=== PATIENT | male | born 1990 | race Caucasian/White ===

== ENCOUNTER 2021-08-06 10:30 | Outpatient (REF) | payer OTHER, SELFPAY ==
[2021-08-06 11:31] LABS: Appearance Urine HAZY; Color Urine YELLOW; Glucose Urine UA NEG (NEG); Leukocyte Esterase Urine NEG (NEG); Nitrite Urine NEG (NEG); UACC Culture Trigger NO; Urine Blood TRACE (NEG); Urine Ketones NEG (NEG); Urine Protein NEG (NEG-TRACE)
[2021-08-06 11:43] LABS: Alanine Aminotransferase 18 U/L (0-40); Albumin Level 4.7 g/dL (3.5-5.0); Alkaline Phosphatase 55 U/L (39-117); Anion Gap 13 (12-20); Aspartate Amino Transferase 21 U/L (5-37); Bilirubin Total 0.7 mg/dL (0.0-1.0); Blood Urea Nitrogen 11 mg/dL (9-16); Calcium 9.3 mg/dL (8.4-10.2); Carbon Dioxide 24 mmol/L (22-29); Chloride 105 mmol/L (96-108); Cholesterol 209 mg/dL; Estimated Glomerular Filt Rate > 60; Glucose Fasting 77 mg/dL (60-99); HDL Cholesterol 52 mg/dL; LDL Cholesterol Calculated 142 mg/dl; Potassium 4.2 mmol/L (3.3-5.1); Sodium 138 mmol/L (135-145); Total Protein 7.6 g/dL (6.5-8.0); Triglycerides 76 mg/dL
[2021-08-06 12:04] LABS: WBC Urine 0 /HPF (0-4)
[2021-08-06 12:07] LABS: TSH reflex Free T4 0.98 uIU/mL (0.32-4.0)
== END 2021-08-06 10:31 | disposition home or self-care (01) ==
LOC: HO.HMGCLDS 10:30
PROVIDERS: PCP Nurse Practitioner Family; Visit Provider Nurse Practitioner Family
DX: B36.0 Pityriasis versicolor (principal); R31.29 Other microscopic hematuria; Z80.0 Family history of malignant neoplasm of digestive organs
CPT/HCPCS: 36415; 80053; 80061; 81001; 84443

== ENCOUNTER → 2021-11-02 14:06 | Outpatient (BNVA) | payer OTHER, SELFPAY | PROVIDERS: PCP Nurse Practitioner Family; Referring Provider Nurse Practitioner Family; Visit Provider Nurse Practitioner | DX: Z01.818 Encounter for other preprocedural examination (principal); Z80.0 Family history of malignant neoplasm of digestive organs | CPT/HCPCS: 99202 ==

== ENCOUNTER 2021-11-28 11:16 | Outpatient (REF) | payer OTHER, SELFPAY ==
[2021-11-28 12:41] LABS: COVID-19 Test Positive (Negative); IDNOW Serial# 16C4AD1C
== END 2021-11-28 11:17 | disposition home or self-care (01) ==
LOC: HO.LAB 11:16
PROVIDERS: Visit Provider Internal Medicine
DX: Z20.822 Contact with and (suspected) exposure to COVID-19 (principal)
CPT/HCPCS: 36415; 87635; C9803

== ENCOUNTER 2022-03-18 07:52 | Day surgery (SDC) | payer OTHER, SELFPAY ==
[2022-03-18 07:15] VITALS: BMI 26.9
[2022-03-18 08:01] VITALS: BP 150/87; PULSE 74; RESP 18; TEMP 36.2
--- NOTE | 2022-03-18 08:14 | HO.ANESPROP2 ---
PMFSH Active Problems Active Problems: All Active Problems (Updated 03/17/22 @ 08:17 by Trish Mariscal RN) Family hx of colon cancer (Acute) Tinea versicolor (Acute) Microscopic hematuria (Acute) Anxiety (Acute) Past Medical History Medical History Anxiety Microscopic hematuria Panic attacks Tinea versicolor Functional capacity: independent ambulation Family History Family history of problems with anesthesia: No Surgical History Surgical History (Updated 03/17/22 @ 08:17 by Trish Mariscal RN) History of wisdom tooth extraction History of Problems with Anesthesia: No Social History Social History Housing: House Patient Tobacco Use Status: Never used Tobacco e-Cigarette/Vaping Use: Former Use Second Hand Smoke Exposure: No Are you DNR?: No Advance Directives: No Advance Directives Information Provided: Yes service: Yes Current occupational status: employed Current occupation: [employer] Current occupational exposures/hazards: No Meds Allergies Allergy/AdvReac Type Severity Reaction Status Date / Time No Known Allergies Allergy Verified 02/01/22 11:20 Exam Exam Date and Time: March 18, 2022 0814 Height,Weight and Vital Signs: Height 6 ft 2 in Weight 95.254 kg Last Vital Signs Temp 97.1 F 03/18/22 08:01 Pulse 74 03/18/22 08:01 Resp 18 03/18/22 08:01 BP 150/87 H 03/18/22 08:01 Airway Mallampati Class: II TM Dist: >3cm Neck ROM: Full Heart: RRR Lungs: CTA Assessment and Plan Final Anesthetic Review Family History of Problems with Anesthesia: No History of Problems with Anesthesia: No ASA Class: II Final Preanesthetic Review: No Changes in Pt Med Stat, Meds/Allgs Chart Reviewed, Consent Obtained/Reviewed and Anes Risks/Benef Reviewed Patient Risk: Low Procedure Risk: Low Anesthetic Plan Anesthetic Plan: MAC: Disposition: Standard PACU
--- NOTE | 2022-03-18 08:52 | MHC.SHP ---
Pre-Procedural Eval Section A Date of Service: 03/18/22 Section B Chief Complaint: Fhx malignant neoplasm of digestive Details of Present Illness: grandfather had CRC in his 40's maternal, his father had polyps in early 40's. Relevant Family History (Specify if Yes): Yes Relevant Social History: None Present Medications: see Short Stay Collaborative assessment Medical History: Significant History (Anxiety Microscopic hematuria Panic attacks Tinea versicolor) History of Previous Operations: Relevant previous surgery/procedure and date(s) (wisdom tooth removal) Allergies: Allergies Allergy/AdvReac Type Severity Reaction Status Date / Time No Known Allergies Allergy Verified 02/01/22 11:20 Review of Systems Sugical H&P ROS: Negative: Constitution, Cardiovascular, Respiratory, Neurological, Psychiatric, Hem-Onc, Allergic/Immunologic, Gastrointestinal, Genitourinary, Musculoskeletal, Integumentary, Endocrine and Eyes/Ears/Nose/Throat Exam Surgical H&P Exam: Normal: HEENT, Normal: Heart, Normal: Lungs, Normal: Extremities, Normal: Abdomen, Normal: Skin and Normal: Neurological Plan Diagnosis/Plan: Unchanged I have reviewed the history and physical and performed a pertinent physical examination on my patient. No changes have occurred unless specified.
--- NOTE | 2022-03-18 08:54 | PM.OP ---
Brief Operative Note Date of Service: 03/18/22 Pre-op diagnosis: FH of CRC and polyps Post-op diagnosis: same Procedure: see op note Surgeon: Elia Rust MD Anesthesia: MAC Was an Professor Of Psychology used for this Procedure?: No Estimated blood loss (mL): 0 Condition: stable Disposition: PACU
--- NOTE | 2022-03-18 08:54 | W.PM.OPN ---
Operative Note Operative Note Date of Service: 03/18/22 Narrative: Operative Information Procedure Description: Colonoscopy Indication: FH of CRC and polyps, high risk screening Anesthesia: MAC COLONOSCOPY Instrument: Olympus variable stiffness pediatric scope 190L Colonoscopy Monitoring: Vital signs and clinical assessment, continuous EKG monitoring, Pulse oximetry, Carbon Dioxide monitoring and blood pressure monitoring were done throughout the procedure. Colon withdrawal time was 8 minutes. Procedure: The patient was placed in the left lateral decubitis position and pre-procedure medications were administered. After a digital rectal examination of the ano-rectum, the video colonoscope was inserted into the rectum and advanced through the colon to the cecum/TI. The colonoscope was slowly withdrawn in a retrograde panoramic fashion and the colon mucosa was carefully examined including a retroflexed view of the rectum. Findings and interventions are described below. Procedure Difficulty: easy Findings: Terminal Ileum-normal right sided retroflexion was normal Cecum:normal Ascending Colon: normal Transverse Colon -normal Descending Colon:normal Sigmoid Colon: normal Rectum: Retroflexion with small internal hemorrhoids, grade I Anorectum - normal Colon preparation: [place] Bowel Preparation Scale Right colon; 2 Transverse colon: 2 Left colon; 2 (0 = Unprepared colon segment with mucosa not seen due to solid stool that cannot be cleared. 1 = Portion of mucosa of the colon segment seen, but other areas of the colon segment not well seen due to staining, residual stool and/or opaque liquid. 2 = Minor amount of residual staining, small fragments of stool and/or opaque liquid, but mucosa of colon segment seen well. 3 = Entire mucosa of colon segment seen well with no residual staining, small fragments of stool or opaque liquid) Impression and Post Procedure Diagnosis: internal hemorrhoids Plan: High fiber diet leaflet Avoid straining at stool, epsom salts and sitz bath, anusol supps or cream Repeat Colonoscopy in 5 years due to FH or earlier if clinically indicated Above findings were reviewed with the patient and relevant handouts were provided if indicated.
[2022-03-18 09:25] VITALS: BP 95/50; PULSE 67; RESP 16; TEMP 36.1; O2SAT 98
[2022-03-18 09:40] VITALS: BP 106/60; PULSE 56; RESP 16; TEMP 36.1; O2SAT 98
--- NOTE | 2022-03-18 13:12 | HO.POSTANES ---
Post Anesthesia Evaluation Post Anesthesia Evaluation Vital Signs: Vital Signs Temp Pulse Resp BP Pulse Ox 03/18/22 09:40 97.0 F 56 16 106/60 98 03/18/22 09:25 97.0 F 67 16 95/50 L 98 03/18/22 08:01 97.1 F 74 18 150/87 H Anesthesia: Monitored Mental Status: Awake Pain Control: Satisfactory Nausea/Vomiting: None Hydration: Adequate Anesthesia-Related Issues: No Anes. Related Issues
== END 2022-03-18 10:21 | disposition home or self-care (01) ==
PROVIDERS: PCP Nurse Practitioner Family; Visit Provider Internal Medicine Gastroenterology
PROC: 0DJD8ZZ Inspection of Lower Intestinal Tract, Via Natural or Artificial Opening Endoscopic (ICD-10-PCS; CPT 45378; principal; 2022-03-18 09:20)
DX: Z12.11 Encounter for screening for malignant neoplasm of colon (principal); Z80.0 Family history of malignant neoplasm of digestive organs; Z83.71 Family history of colonic polyps; K64.0 First degree hemorrhoids; R31.29 Other microscopic hematuria; B36.0 Pityriasis versicolor
CPT/HCPCS: 45378

== ENCOUNTER 2022-08-05 11:29 | Outpatient (REF) | payer OTHER, SELFPAY ==
--- NOTE | ~2022-08-05 | XR_ITS ---
EXAMINATION: XR HIP, LEFT CLINICAL INFORMATION: Pain COMPARISON: None TECHNIQUE: Two views of the left hip. FINDINGS: Bones and soft tissues are normal. No fracture. Alignment is anatomic. Hip joint space is maintained. XR/XR hip LT min 2V IMPRESSION: Normal left hip.
== END 2022-08-05 11:30 | disposition home or self-care (01) ==
LOC: HO.HMGCX 11:29
PROVIDERS: PCP Nurse Practitioner Family; Visit Provider Nurse Practitioner Family
DX: M25.552 Pain in left hip (principal)
CPT/HCPCS: 73502

== ENCOUNTER 2022-09-23 13:00 | Outpatient (RCR) | payer OTHER, SELFPAY ==
--- NOTE | 2022-08-09 15:57 | MHC.PT.EP ---
[facility] [place] Office [place] Office [place] Office [address] Glendy Steen [address] [phone] F: [phone] F: [phone] F: [phone] F: [phone] Physical Therapy Plan of Care Date of Evaluation: Date of Surgery: n/a Diagnosis: pain in L hip Assessment: Patient is a 32 year old male presenting to PT with complaints of pain in his L hip. Pt reports onset of pain began Spring 2021 due to lunging to his L. He presents today with impairments in pain, hip strength, ROM. 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 Pt expresses senior care goal of reducing pain, and is motivated to work towards this in PT. Clinical presentation today is most consistent with signs and sx associated with hip pain with possible labral involvement and pt will benefit from skilled PT to address the following problems and impairments noted upon evaluation: pain, hip strength, ROM. These problems limit the patient with the following functional activities: work, sleep, ADLs, caring for 3 and 1 year old, ambulation, car transfer. The prescribed treatment plan of care is medically necessary. Co-morbidities of none were identified and taken into considerations of plan of care. Pt was educated on HEP, role of PT, prognosis, POC. Frequency and Duration: The patient will be seen 2 x week x 4 weeks Short Term Goals: Pt will demonstrate improved hip MMT strength by 1/3 grade in 2 weeks for improved lumbopelvic stability. Pt will demonstrate minimal tenderness to TFL in 2 weeks. Pt will demonstrate L SLS stability x 30 sec for improved SL stability in 2 weeks. Section Gang Worker Goals: Pt will demosntrate improved LEFI score by 9 points in 4 weeks for improved functional mobility. Pt will demonstrate ability to sleep on L side with min to no pain in 4 weeks for improved QOL. Pt will demonstrate ability to get in and out of car with min to no pain in 4 weeks for return to PLOF. Treatment Plan: Modalities to reduce pain, spasms and effusion. Manual therapy to restore motion and function. Therapeutic exercise to improve strength and flexibility. Neuromuscular re-education for posture and balance. Therapeutic activities to return to functional activities of daily living. Electronically signed by: Dorothy Chavez, PT, DPT, ATC Please sign and return to therapist. Thank you for your referral.
--- NOTE | 2022-11-03 15:45 | MHC.PT.DC ---
[facility] [place] Office [place] Office [place] Office [address] [phone] F: [phone] F: [phone] F: [phone] F: [phone] Physical Therapy Discharge Report Diagnosis: pain in L hip Date of Surgery: n/a Date of Evaluation: 08/09/22 Date of Discharge: 11/03/22 Treatments to Date: 10 Cancellations to Date: 4 No Shows to Date: 0 Discharge Status: Discharge Summary: Pt has not attended skilled PT in >30 days therefore pt to be d/c. Electronically signed by: Dorothy Chavez, PT, DPT, ATC Please sign and return to therapist. Thank you for your referral.
== END 2022-11-03 15:46 | disposition home or self-care (01) ==
LOC: HO.PTCHIC 13:00
PROVIDERS: PCP Nurse Practitioner Family; Visit Provider Nurse Practitioner Family
DX: M25.552 Pain in left hip (principal)
CPT/HCPCS: 97110; 97112; 97140; 97161

== ENCOUNTER 2024-01-04 10:36 | Outpatient (AMB) | payer OTHER, SELFPAY ==
--- NOTE | 2024-01-04 10:59 | MHC.PC.OV ---
Vital Signs 01/04/24 11:00 Height 6 ft 2 in Weight 222 lb BMI 28.5 BP 100/78 Blood Pressure Location Lt brachial Position Sitting Pulse 72 Pulse Source Pulse Oximeter Pulse Oximetry (%) 97 Oxygen Delivery Method Room Air Intake Visit Reasons: PE Intake Note: Pt is here for his Annual PE Allergies No Known Allergies Allergy (Verified 01/04/24 11:01) Medication List - Last Reconciled 01/04/24 by LIANNA Retana hydroxyzine HCl 25 mg PO BID PRN 30 days ketoconazole 2% 1 appl topical DAILY 14 days meloxicam 15 mg PO DAILY Tobacco use date assessed: 01/04/24 Dental Screening Dental Screen Date: 01/04/24 Did you have a dental visit in the last 12 months?: Yes Did you have a dental problem in the last 6 months where you did not have access to dental care?: No Was dental information given to patient?: Patient has dentist HPI PE HPI Details Pt is here for a PE. Will order labs. Pt is following up with [facility] due to left hip femoral acetabular impingement syndrome. He underwent surgery on October 17, missing notes. [facility] Medical History Tinea versicolor Microscopic hematuria Panic attacks Anxiety Surgical History History of wisdom tooth extraction Social History Housing: House Patient Tobacco Use Status: Never used Tobacco e-Cigarette/Vaping Use: Former Use Second Hand Smoke Exposure: No service: Yes Current occupational status: employed Current occupation: [employer] active Current occupational exposures/hazards: No Cognitive needs: No Hearing needs: No Vision needs: No Questionnaire PHQ-9 Over the last 2 weeks, how often have you been bothered by any of the following problems? 1. Little interest or pleasure in doing things: not at all 2. Feeling down, depressed, or hopeless: not at all 3. Trouble falling or staying asleep, or sleeping too much: several days 4. Feeling tired or having little energy: several days 5. Poor appetite or overeating: not at all 6. Feeling bad about yourself - or that you are a failure or have let yourself or your family down: not at all 7. Trouble concentrating on things, such as reading the newspaper or watching television: not at all 8. Moving or speaking so slowly that other people could have noticed. Or the opposite - being so fidgety or restless that you have been moving around a lot more than usual: not at all 9. Thoughts that you would be better off or of hurting yourself in some way: not at all Total score: 2 Source: Developed by Drs. William Garay, Yeni Kaplan, Rc Carey and colleagues, with an educational karey from [employer]. Thrive Questionnaire Date Thrive assessed: 01/04/24 I am a: Patient What is your living situation today?: I have a steady place to live Within the past 12 months, did the food you bought not last and you didn't have the money to get more?: Never true Within the past 12 months, did you worry whether your food would run out before you got money to buy more?: Never true Do you have trouble paying for medicines?: No Do you have trouble getting transportation to medical appointments?: No Do you have trouble paying your heating and electricity bill?: No Do you have trouble taking care of your child, family member or friend?: No Do you have trouble with day-to-day activities such as bathing, preparing meals, shopping, managing finances, etc.?: No Are you currently unemployed and looking for a job?: No Are you interested in more education?: No Please select the resources that you would like help with: None THRIVE Score: 0 AUDIT C Alcohol Use Questionnaire (AUDIT-C) 1. How often do you have a drink containing alcohol?: 2-4 times a month 2. How many drinks containing alcohol do you have on a typical day when you are drinking?: 5 or 6 3. How often do you have six or more drinks on one occasion?: Less than monthly Total Score: 5 SHAUN-7 AMB Questionnaire SHAUN-7 Date SHAUN - 7 assessed: 01/04/24 Feeling nervous, anxious, or on edge: 1 = Several days Not being able to stop or control worryin = Several days Worrying too much about different things: 1 = Several days Trouble relaxin = Not at all Being so restless that it is hard to sit still: 0 = Not at all Becoming easily annoyed or irritable: 1 = Several days Feeling afraid as if something awful might happen: 1 = Several days Total SHAUN-7 score (0-4 normal; 5-9 mild; 10-14 moderate; 15-21 severe): 5 Source: Developed by Drs. William Garay, Yeni Kaplan, Rc Carey and colleagues, with an educational karey from [employer]. Review of Systems Const Denies chills and Denies fever(s) Eyes Denies blurry vision ENT Denies vertigo, Denies dizziness and Denies sore throat Card Denies chest pain at rest, Denies chest pain with activity, Denies diaphoresis, Denies dyspnea and Denies dyspnea on exertion Resp Denies cough, Denies dyspnea, Denies dyspnea on exertion and Denies wheezing GI Denies abdominal pain, Denies melena, Denies hematochezia, Denies constipation, Denies diarrhea and Denies loose stools Denies hematuria Musc Denies numbness and Denies tingling Skin/Breast Denies lesions Neuro Denies vertigo, Denies dizziness, Denies numbness and Denies tingling Psych Denies anxiety, Denies depression, Denies homicidal ideation, Denies suicidal ideation and Denies other (substance abuse) Aller/Immun Denies wheezing Physical exam (Primary Care) Vital Signs: Last Vital Signs Pulse 72 01/04/24 11:00 BP 100/78 01/04/24 11:00 Pulse Ox 97 01/04/24 11:00 Oxygen Delivery Method Room Air 01/04/24 11:00 BMI result Body Mass Index 28.5 Tobacco/Smoking Status: Tobacco use Status Tobacco use date assessed 01/04/24 01/04/24 11:04 Patient Tobacco Use Status Never used Tobacco 01/04/24 11:04 e-Cigarette/Vaping Use Former Use 01/04/24 11:04 PHQ-9: PHQ-9 Score PHQ-9: Total score 2 01/04/24 11:20 Thrive Assessment: Date of Thrive Assessment Date Thrive assessed 01/04/24 01/04/24 11:13 Const General: cooperative Nutritional Appearance: well nourished Orientation/consciousness: patient oriented x3 HENMT Head: Yes normal to inspection, Yes normocephalic and Yes atraumatic Ears: TM's normal bilaterally Eyes General: appearance normal, both eyes and all related structures Alignment and Position: alignment normal and position normal Neck Neck: Yes normal visual inspection and Yes no lymphadenopathy Thyroid: Thyroid normal Resp Effort & Inspection: normal respiratory effort Auscultation: clear to auscultation bilaterally Cardio Rate: regular rate Rhythm: regular rhythm Heart sounds: S1 normal heart sound present, S2 normal heart sound present and no murmurs GI Palpation (GI): Soft to palpation and nontender Auscultation: normal bowel sounds Male General Exam: Yes normal external exam Penis: normal penis Scrotum: scrotum normal, testes descended bilaterally and no inguinal hernias Testes: no testicular mass Skin Other: healed scars to left hip, intact, no signs of infection Rashes: no rashes Neuro General: patient oriented x3, moves all extremities, no focal motor deficits and deep tendon reflexes 2+ bilaterally Romberg Test: Negative Psych Appearance: grossly normal Mental Status: mental status grossly normal Speech and movement: Normal speech and movement present Affect: normal affect Attitude: cooperative Thought process: Normal thought process present Thought content: Normal thought content present Insight: Good insight present (Psych) Judgement: Good judgement present (Psych) Assessment and Plan Assessment & Plan (1) Physical exam: Code(s): Z - Encounter for general adult medical examination without abnormal findings Plan: Labs ordered Plan The patient agreed to the use of a clinical medical assistant for this encounter. Scribed for LIANNA Baird by Chata Fajardo clinical medical assistant, on 01/04/2024 at 11:20 EST. Orders: Orders Comprehensive [place]. Panel Fast Today Z00. - Encounter for general adult medical examination without abnormal findings TSH reflex Free T4 Today Z00.00 - Encounter for general adult medical examination without abnormal findings UA CC w/rflx Micro + Cult Today Z00. - Encounter for general adult medical examination without abnormal findings Lipid Panel Today Z00.00 - Encounter for general adult medical examination without abnormal findings Complete Blood Count Auto Diff Today Z00. - Encounter for general adult medical examination without abnormal findings Coding Level of Care Code Est Pt Prev Care [id number](37782) Diagnoses Physical exam Z.
[2024-01-04 11:00] VITALS: BP 100/78; PULSE 72; O2SAT 97; BMI 28.5
== END 2024-01-04 11:31 | disposition home or self-care (01) ==
PROVIDERS: Visit Provider Nurse Practitioner Family
DX: Z00.00 Encounter for general adult medical examination without abnormal findings (principal)
CPT/HCPCS: 99395

== ENCOUNTER 2024-08-16 10:44 | Outpatient (REF) | payer OTHER, SELFPAY ==
[2024-08-16 13:31] LABS: MANUAL DIFF FLAG NO
[2024-08-16 13:32] LABS: Appearance Urine Clear; Color Urine Yellow; Glucose Urine UA Negative (Negative); Leukocyte Esterase Urine Negative (Negative); Nitrite Urine Negative (Negative); PH 7.5 (5.0-9.0); Specific Gravity - Urine 1.015 (1.005-1.025); Urine Blood Negative (Negative); Urine Ketones Negative (Negative); Urine Protein Negative (Neg-Trace)
[2024-08-16 13:44] LABS: Basophils Percent Auto 0.8 % (0-2); Eosinophils Absolute Auto 0.1 X10*3/uL (0.0-0.4); Eosinophils Percent Auto 1.3 % (0-4); Hematocrit 44.1 % (42.0-52.0); Hemoglobin 14.9 g/dl (14.0-18.0); Lymphocytes Absolute Auto 2.3 X10*3/uL (1.2-4.9); Lymphocytes Percent Auto 44.3 % (20-40); Mean Corpuscular HGB Conc 33.8 g/dl (31.0-36.0); Mean Corpuscular Hemoglobin 30.9 pg (27.0-33.0); Mean Corpuscular Volume 91.5 fL (80.0-98.0); Mean Platelet Volume 9.5 fL (9.4-12.4); Monocytes Absolute Auto 0.4 X10*3/uL (0.1-1.2); Neutrophils Absolute Auto 2.4 x10*3/uL (2.0-8.3); Neutrophils Percent Auto 45.6 % (45-73); Platelet Count 293 X10*3/uL (160-400); Red Blood Count 4.82 X10*6/uL (4.60-5.80); Red Cell Distribution Width 13.4 % (11.0-16.0); White Blood Count 5.2 X10*3/uL (4.8-10.8)
[2024-08-16 13:57] LABS: Alanine Aminotransferase 30 U/L (0-40); Albumin Level 4.3 g/dL (3.5-5.0); Alkaline Phosphatase 52 U/L (39-117); Anion Gap 10 (12-20); Aspartate Amino Transferase 20 U/L (5-37); Bilirubin Total 0.3 mg/dL (0.0-1.0); Blood Urea Nitrogen 11 mg/dL (9-16); Calcium 9.2 mg/dL (8.4-10.2); Carbon Dioxide 26 mmol/L (22-29); Chloride 108 mmol/L (96-108); Cholesterol 224 mg/dL (<200); Estimated Glomerular Filt Rate > 60; Glucose Fasting 90 mg/dL (60-99); HDL Cholesterol 46 mg/dL (>40); LDL Cholesterol Calculated 161 mg/dL (<100); Potassium 4.3 mmol/L (3.3-5.1); Sodium 140 mmol/L (135-145); Total Protein 7.3 g/dL (6.5-8.0); Triglycerides 86 mg/dL (<150)
== END 2024-08-16 10:45 | disposition home or self-care (01) ==
LOC: HO.HMGCLDS 10:44
PROVIDERS: PCP Nurse Practitioner Family; Visit Provider Nurse Practitioner Family
DX: Z00.00 Encounter for general adult medical examination without abnormal findings (principal)
CPT/HCPCS: 36415; 80053; 80061; 81003; 84443; 85025

== ENCOUNTER 2025-01-31 16:08 | Outpatient (AMB) | payer OTHER, SELFPAY ==
--- NOTE | 2025-01-31 16:11 | MHC.PC.OV ---
Vital Signs 01/31/25 16:12 Height 6 ft 2 in Weight 215 lb BMI 27.6 BP 108/70 Blood Pressure Location Lt brachial Position Sitting Respiration 18 Pulse 67 Pulse Source Pulse Oximeter Temp 98.9 F Temp Source Oral Pulse Oximetry (%) 98 Oxygen Delivery Method Room Air Intake Visit Reasons: ANNUAL PE Intake Note: Pt is here today for his annual physical Allergies No Known Allergies Allergy (Verified 01/31/25 17:19) Medication List - Last Reconciled 01/31/25 by DUSTIN Retana- hydroxyzine HCl 25 mg PO BID PRN 30 days ketoconazole 2% 1 appl topical DAILY 14 days meloxicam 15 mg PO DAILY Tobacco use date assessed: 01/31/25 Dental Screening Dental Screen Date: 01/31/25 Did you have a dental visit in the last 12 months?: Yes Did you have a dental problem in the last 6 months where you did not have access to dental care?: No Was dental information given to patient?: Patient has dentist HPI ANNUAL PE HPI Details History of Present Illness The patient is a 34-year-old male presenting with gastrointestinal symptoms, principally abdominal pain and diarrhea associated with spicy food intake. He further reports recent hematochezia. He has a significant family history of colorectal cancer, for which he underwent a colonoscopy in February 2022. The hematochezia follows episodes of pain during defecation, with blood observed in the toilet and on toilet paper, necessitating referral to gastroenterology for further investigation. This is not with every BM Additionally, the patient has ongoing left hip pain following surgical intervention for a labral tear in 2022. He is under the care of orthopedic specialists, considering further surgical options due to the persistent post-surgical discomfort. Health Maintenance - Colonoscopy completed in February 2022 due to family history of colorectal cancer. - Dietary counseling regarding the effects of spicy foods on gastrointestinal symptoms. - Scheduled follow-up with orthopedics for potential surgical intervention for left hip pain. Social History - Not discussed. Review of Systems - Gastrointestinal: Reports episodes of abdominal discomfort and diarrhea following spicy food intake. Reports hematochezia following defecation. Denies constipation. - Cardiovascular: Denies shortness of breath or CP -denies any SI or HI -denies anxiety or depression Physical Exam General: Cooperative, healthy appearing, comfortable, no acute distress and well developed Orientation: Patient oriented x3 Limitations: Left hip problem due to surgery for a labral tear in 2022, significant pain persists Head: Normal to inspection Ears: Hearing grossly normal bilaterally Nose: Normal external nose present Face and sinus: Normal facial exam Eyes: Appearance normal, both eyes and all related structures Neck: Normal visual inspection and Yes full ROM Respiratory: Normal respiratory effort and able to speak in complete sentences. Clear to auscultation bilaterally Cardiovascular: Regular rate and rhythm. Normal S1 and S2 GI: no abd pain with palpation. no signs of anal fissures or hemorrhoids on rectal exam Skin: No rashes or lesions noted Neuro: Patient oriented x3 Extremities: Normal to inspection except for left hip problem due to surgery for a labral tear in 2022, significant pain persists Results Plan The patient will commence famotidine therapy to address gastrointestinal discomfort and mitigate postprandial symptoms when consuming spicy foods. Due to reported hematochezia and relevant family history of colorectal cancer, a referral has been made to a front office help for comprehensive evaluation. The orthopedic regimen will persist with ongoing consultations regarding the persistent left hip pain following previous labral tear surgery, with surgical options under continuous review. Discussion Notes I discussed with the patient the likely effects of spicy foods on the gastrointestinal system and the introduction of famotidine to manage symptoms. We discussed the necessity of a gastroenterological evaluation given the recent hematochezia and family history of colorectal cancer. I have explained that the referral will aid in diagnosing any significant gastrointestinal condition. For the left hip pain, we talked about the continuation of orthopedic evaluations and potential advanced interventions if pain persists. The patient consented to the proposed management plan and understands the importance of follow-up appointments as scheduled. Patient Instructions - Begin taking famotidine when planning to consume spicy foods to reduce gastrointestinal discomfort. - Follow up with the gastroenterology specialist as scheduled for further evaluation. - Continue with the current orthopedic evaluations regarding hip pain and attend all follow-up appointments. - Seek immediate medical attention if symptoms worsen or new symptoms develop. [facility], LATER [facility] Medical History Tinea versicolor Microscopic hematuria Panic attacks Anxiety Surgical History History of wisdom tooth extraction Social History Housing: House Patient Tobacco Use Status: Never used Tobacco e-Cigarette/Vaping Use: Former Use Second Hand Smoke Exposure: No service: Yes Current occupational status: employed Current occupation: [employer] Current occupational exposures/hazards: No Cognitive needs: No Hearing needs: No Vision needs: No Questionnaire PHQ-9 Over the last 2 weeks, how often have you been bothered by any of the following problems? 1. Little interest or pleasure in doing things: not at all 2. Feeling down, depressed, or hopeless: not at all 3. Trouble falling or staying asleep, or sleeping too much: more than half the days 4. Feeling tired or having little energy: several days 5. Poor appetite or overeating: not at all 6. Feeling bad about yourself - or that you are a failure or have let yourself or your family down: not at all 7. Trouble concentrating on things, such as reading the newspaper or watching television: not at all 8. Moving or speaking so slowly that other people could have noticed. Or the opposite - being so fidgety or restless that you have been moving around a lot more than usual: not at all 9. Thoughts that you would be better off or of hurting yourself in some way: not at all Total score: 3 Depression Screening Interpretation: Negative Depression Screening Done: Yes 28705 - PHQ-9 Billing: Yes Source: Developed by Drs. William Garay, Yeni Kaplan, Rc Carey and colleagues, with an educational karey from [employer]. Thrive Questionnaire Date Thrive assessed: 01/31/25 I am a: Patient What is your living situation today?: I have a steady place to live Within the past 12 months, did the food you bought not last and you didn't have the money to get more?: Never true Within the past 12 months, did you worry whether your food would run out before you got money to buy more?: Never true Do you have trouble paying for medicines?: No Do you have trouble getting transportation to medical appointments?: No Do you have trouble paying your heating and electricity bill?: No Do you have trouble taking care of your child, family member or friend?: No Do you have trouble with day-to-day activities such as bathing, preparing meals, shopping, managing finances, etc.?: No Are you currently unemployed and looking for a job?: No Are you interested in more education?: No Please select the resources that you would like help with: None Currently or been in a relationship where the following occur: No concerns reported THRIVE Score: 0 AUDIT C Alcohol Use Questionnaire (AUDIT-C) 1. How often do you have a drink containing alcohol?: 2-4 times a month 2. How many drinks containing alcohol do you have on a typical day when you are drinking?: 3 or 4 3. How often do you have six or more drinks on one occasion?: Less than monthly Total Score: 4 Score Reviewed/Action Taken: Yes SHAUN-7 AMB Questionnaire SHAUN-7 Date SHAUN - 7 assessed: 01/31/25 Feeling nervous, anxious, or on edge: 0 = Not at all Not being able to stop or control worryin = Not at all Worrying too much about different things: 0 = Not at all Trouble relaxin = Not at all Being so restless that it is hard to sit still: 0 = Not at all Becoming easily annoyed or irritable: 0 = Not at all Feeling afraid as if something awful might happen: 0 = Not at all Total SHAUN-7 score (0-4 normal; 5-9 mild; 10-14 moderate; 15-21 severe): 0 Source: Developed by Drs. William Garay, Yeni Kaplan, Rc Carey and colleagues, with an educational karey from [employer]. SHAUN-7 Assessment Billing SHAUN-7 Assessment Tool: SHAUN-7 Assessment 48475 Physical exam (Primary Care) Vital Signs: Last Vital Signs Temp 98.9 F 01/31/25 16:12 Pulse 67 01/31/25 16:12 Resp 18 01/31/25 16:12 BP 108/70 01/31/25 16:12 Pulse Ox 98 01/31/25 16:12 Oxygen Delivery Method Room Air 01/31/25 16:12 BMI result Body Mass Index 27.6 Tobacco/Smoking Status: Tobacco use Status Tobacco use date assessed 01/31/25 01/31/25 16:13 Patient Tobacco Use Status Never used Tobacco 01/31/25 16:13 e-Cigarette/Vaping Use Former Use 01/31/25 16:13 PHQ-9: PHQ-9 Score PHQ-9: Total score 3 01/31/25 16:38 Depression Screening Interpretation: Negative Thrive Assessment: Date of Thrive Assessment Date Thrive assessed 01/31/25 01/31/25 16:13 Currently or been in a relationship where the following occur: No concerns reported Coding Level of Care Code Est Pt Prev Care [id number](80389) Diagnoses Physical exam Z00.00 Family hx of colon cancer Z80.0 Blood in stool K92.1 Additional Codes SHAUN-7 Assessment Billing - SHAUN-7 Assessment Tool: SHAUN-7 Assessment 51097 ([id number]) PHQ-9 - 86472 - PHQ-9 Billing: Yes ([id number]) Assessment & Plan Assessment & Plan (1) Physical exam: Code(s): Z00.00 - Encounter for general adult medical examination without abnormal findings Category: Medical (2) Family hx of colon cancer: Code(s): Z80.0 - Family history of malignant neoplasm of digestive organs Category: Medical (3) Blood in stool: Code(s): K92.1 - Melena Category: Medical Plan . Orders: Orders Complete Blood Count Auto Diff Today Z00.00 - Encounter for general adult medical examination without abnormal findings TSH reflex Free T4 Today Z00.00 - Encounter for general adult medical examination without abnormal findings Lipid Panel Today Z00.00 - Encounter for general adult medical examination without abnormal findings Comprehensive [place]. Panel Fast Today Z00.00 - Encounter for general adult medical examination without abnormal findings UA CC w/rflx Micro + Cult Today Z00.00 - Encounter for general adult medical examination without abnormal findings Referrals Gastroenterology Referral K92.1 - Melena, Z80.0 - Family history of malignant neoplasm of digestive organs Medications: New famotidine 40 mg PO DAILY 30 days PRN 30 tabs 2RF spicy foods
[2025-01-31 16:12] VITALS: BP 108/70; PULSE 67; RESP 18; TEMP 37.2; O2SAT 98; BMI 27.6
--- OUTSIDE RECORDS SUMMARY | 2025-01-31 19:23 | XMS_ITS | Data Portability ---
Author Organization [facility], [facility] Address [address] [place] [address] Assessment Encounter Date Assessment Date Assessment LastModified by Organization Details LastModified Time 05/29/2024 05/29/2024 X-rays 3 views ordered, obtained, reviewed: AP, false profile, and modified Clancy view Left hip: Postsurgical changes status post femoroplasty. There is no joint space narrowing. Lateral center edge angle 34 degrees, alpha angle 56 degrees with mild residual cam deformity X-rays 3 views ordered, obtained, and personally reviewed today Weight bearing AP, Lateral, and sunrise views: Demonstrates no joint space narrowing medial, lateral, patellofemoral compartment. No effusion, loose bodies or fracture Impression: 33-year-old male status post op visit status post left hip arthroscopy, labral repair, and femoroplasty performed on October 17, 2023 Plan: Patient reports brief relief of symptoms after the intra-articular injection. Given ongoing symptoms we are going to order MR arthrogram left hip. He also reports ongoing, severe knee symptoms which are not as bothersome as his hip. Remains symptomatic despite oral medication, activity modification, and physical therapy. MRI of the left knee will be ordered to rule out any meniscal or ligamentous pathology. He will follow-up to review results from the imaging in 1 month. [email or web address] Not available 05/29/2024 12:15:50 06/21/2024 06/21/2024 X-rays 3 views Previously obtained and reviewed today: AP, false profile, and modified Clancy view Left hip: Postsurgical changes status post femoroplasty. There is no joint space narrowing. Lateral center edge angle 34 degrees, alpha angle 56 degrees with mild residual cam deformity X-rays 3 views ordered, obtained, and personally reviewed today Weight bearing AP, Lateral, and sunrise views: Demonstrates no joint space narrowing medial, lateral, patellofemoral compartment. No effusion, loose bodies or fracture MRI left knee obtained on June 18, 2024, images and report independent reviewed: Medial lateral meniscus intact. There is signal change posterior horn medial meniscus consistent with degeneration. Tickler cartilage intact. Cruciate and collateral ligaments intact. MR arthrogram left hip obtained on June 19, 2024, images and report independent reviewed: Postsurgical changes at the anterior superior labrum without discernible tear. T2 signal at the femoral head neck junction likely postsurgical. Articular cartilage intact. Impression: 33-year-old male status post op visit status post left hip arthroscopy, labral repair, and femoroplasty performed on October 17, 2023 Plan: In respect to his left knee reviewed MRI demonstrating no meniscus tear, no significant chondromalacia or other intra-articular pathology. Reports pain mainly over the patellar tendon consistent with patellar tendinitis. This typically improves with nonoperative treatment. Recommend he continue with strengthening and anti-inflammatori es. Did discuss option for PRP for ongoing symptoms refractory to extensive cervical treatment. In respect to his left hip, reviewed the MR arthrogram. Postsurgical changes present, no obvious labral tear or significant chondromalacia. He is now approximately 8 months out from surgery and still reports significant pain, would be unable to return to occupation without restrictions at this point. It is possible he could continue to improve with therapy however he seems to be plateauing. Counseled the patient that some patients may still remain symptomatic after hip arthroscopy, labral pair, and femoroplasty. Unclear if he would benefit from any consideration for revision surgery at this juncture. He may want consider getting a second opinion. Revision surgery may consist of diagnostic arthroscopy, labral reconstruction, possible additional femoroplasty. He will follow-up with me in 2 months. [email or web address] Not available 06/21/2024 12:49:25 Plan of Treatment Reminders Order Date Submit Date Provider Last Modified By Organization Details Last Modified Time Details Appointments None recorded. Lab None recorded. Referral None recorded. Procedures None recorded. Surgeries None recorded. Imaging CT, hip, w/o contrast - Left hip with 3D RECON s/p hip arthroscopy 2023 024 [place] [facility] [place], [address], [place], [address], 4 14:53:58 MRI, knee, w/o contrast - rule out meniscus tear 2023 [facility] ([facility]), [address] [place], [address], 4 12:13:34 MR, arthrogram, hip - mri arthrogram of left hip // rule out labral tear s/p labral repair 2023 [facility] ([facility]), [address], [place], [address], 4 09:37:25 Medication Orders None recorded. Patient TargetsNo targets recorded. Patient InstructionsNo instructions recorded. Reason for Referral None Reported. Results Created Date Observation Date Name Description Value Unit Range Abnormal Flag Note LastModifiedBy Organization Detail LastModifiedTime 06/19/20 24 06/19/2024 arthr ogram fluor oscop ic rick nce needl e place ment CPT 66257 / left [facility] Access ion Number : [id number] Jared levine Name: Blake Alexander Record Number : [id number] Date of : 1989 Date of Exam: 2023 Referr ing Physic merritt: Dimitir Ocasio [address] [place] [address] Exam: RF Arthro gram Fluoro scopic Guidan ce Needle Placem ent CPT 76718 - Left Room Descri ption: Collins Siem CS Fluoro FLUORO SCOPIC ALLY GUIDED LEFT HIP INJECT ION. HISTOR Y: Pain PROCED URE: Inform ed, writte n consen t was obtain ed from the jared levine. Risks includ ing bleedi ng and infect ion were outlin ed. Jared levine was placed in the supine positi on on the fluoro scopic table. Jared levine's hip was preppe d and draped in the usual steril e fashio n. 1% lidoca ine was admini stered as a local anesth etic. Under fluoro scopic guidan ce a 22-gau ge spinal needle was advanc ed into the hip joint. Intra- articu lar positi on was confir med with a small amount of Isovue contra st. After confir mation of needle positi on, approx imatel y 10 mL of a dilute gadoli nium mixtur e was inject ed into the left hip joint. DAP 24.26 uGy*m2 IMPRES MAURILIO: Fluoro scopic ally guided hip inject ion. See separa te MR arthro gram report . Electr onical ly Signed By: Thad Sutton MD [email or web address] [facility] ([facility]) [address], [place], [address], 06/19/2024 11:41:50 06/19/20 24 06/19/2024 rf, arthr ogram hip inj left CPT 80536 [facility] Access ion Number : [id number] Jared levine Name: Blake Alexander GroupSpacesshante l Record Number : [id number] Date of : 1989 Date of Exam: 2023 Referr ing Physic merritt: Dimitri Ocasio [address] [place] [address] Exam: RF Arthro gram Hip Inj CPT 33018 - Left Room Descri ption: Collins Siem CS Fluoro FLUORO SCOPIC ALLY GUIDED LEFT HIP INJECT ION. HISTOR Y: Pain PROCED URE: Inform ed, writte n consen julianna was obtain ed from the jared levine. Risks includ ing bleedi ng and infect ion were outlin ed. Jared levine was placed in the supine positi on on the fluoro scopic table. Jared levine's hip was preppe d and draped in the usual steril e fashio n. 1% lidoca ine was admini stered as a local anesth etic. Under fluoro scopic guidan ce a 22-gau ge spinal needle was advanc ed into the hip joint. Intra- articu lar positi on was confir med with a small amount of Isovue contra st. After confir mation of needle positi on, approx imatel y 10 mL of a dilute gadoli nium mixtur e was inject ed into the left hip joint. DAP 24.26 uGy*m2 IMPRES MAURILIO: Fluoro scopic ally guided hip inject ion. See separa te MR arthro gram report . Electr onical ly Signed By: Thad Sutton MD [email or web address] [facility] ([facility]) [address] [place], [address], 06/19/2024 11:41:51 06/19/20 24 06/18/2024 MRI, knee, w/o contr ast [facility] Access ion Number : [id number] Patien t Name: Blake Alexander Record Number : [id number] Date of : 1989 Date of Exam: 2023 Referr ing Physic merritt: Dimitri Ocasio [address] [place] [address] Exam: MR Knee (C-) CPT 82770 - Left Room Descri ption: Collins Siem Verio 3.0T TECHNI QUE: Multip lanar, Multis equenc e MRI evalua tion of the left knee was perfor med withou t contra st. INDICA TION: Left knee pain. Questi on menisc al tear. COMPAR COREY: None FINDIN GS: SOFT TISSUE S: Muscul ature demons trates normal signal . CARTIL AGE AND JOINT SPACE: No focal cartil age defect . Small sized joint fluid. BONES: Normal marrow signal . EXTENS OR MECHAN ISM: Intact . CRUCIA TE LIGAME NTS: ACL, PCL are intact . COLLAT ERAL LIGAME NTS, ILIOTI BIAL BAND, PATELL A RETINA CULUM, AND BICEPS FEMORI S TENDON : Intact . MENISC I: There is mild degene rative high signal in the medial menisc us information technology security analyst ior horn. There is no menisc al tear. IMPRES MAURILIO: No acute findin g. Mild degene rative signal in the medial menisc us information technology security analyst ior horn. Electr onical ly Signed By: Tati Harman MD [email or web address] [facility] ([facility]) [address] [place], [address], 06/19/2024 12:28:39 06/21/20 24 06/19/2024 MRI, lower extre mity joint (s), w/ contr ast [facility] Access ion Number : [id number] Jared t Name: Blake Alexander Record Number : [id number] Date of : 1989 Date of Exam: 2023 Referr ing Physic merritt: Dimitri Ocasio [address] [place] [address] Exam: MR Hip (C+) CPT 61615 (Post Arthro gram) - Left Room Descri ption: [facility] Verio 3.0T MR ARTHRO GRAM LEFT HIP HISTOR Y: Pain. Labral repair and femoro plasty 2022 COMPAR COREY: 2021 FINDIN GS: Small amount of high T2 marrow signal at left femora l head-n ayan juncti on is likely conver dea red marrow relate d to previo us surger y. No eviden ce of fractu re or AVN No eviden ce of labral tear or parala bral cyst. Mild signal within the anteri or-sup erior and superi or labrum is likely postsu rgical . Small cleft at the information technology security analyst ior and information technology security analyst ior-in ferior chondr olabra l juncti on may be a normal varian t sublab ral sulcus . Muscle s and tendon s image normal ly. No muscle edema or tendon injury . Impres maurilio: No eviden ce of labral tear or parala bral cyst. Mild signal within the anteri or-sup erior and superi or labrum is likely postsu rgical . Small cleft at the information technology security analyst ior and information technology security analyst ior - inferi or chondr olabra l juncti on may be a normal varian t sublab ral sulcus . Minima l high T2 marrow signal at the femora l head - neck juncti on is likely conver dea red marrow relate d to prior surger y Electr onical ly Signed By: Thad Sutton MD [email or web address] [facility] ([facility]) [address], [place], [address], 06/22/2024 13:55:48 07/27/20 24 08/12/2023 imagi ng/di agnos tic resul t No observ ation record ed. [email or web address] Not Available 06/30 20:09:24 07/27/20 24 07/07/2023 imagi ng/di agnos tic resul t No observ ation record ed. [email or web address] Not Available 06/30 20:09:39 08/29/2008/29/2024 CT, hip, w/o contr ast No observ ation record ed. [email or web address] [facility] [place] [address], [place], [address], 08/30/2024 12:01:54 Result Notes None recorded. Problems Name Problem SNOMED Code Status Onset Date Resolution Date Notes Provider Name and Address Organization Details Recorded Time No complaints 863575062 Active Status : 'A'; Not Available [facility] 09:26:45 Problem Notes None recorded. Procedures Surgical History Date Name Laterality Status Provider Name and Address Organization Details Recorded Time 4 Hip Kenalog Injection, L/R w/US completed Hudson Jose PA-C [address] [facility], [place], [address], [facility] 04/19/2024 08:11:59 4 Sports Knee 4&1 completed Dimitri Ocasio MD [address], [place], [address], [facility] 03/22/2024 10:22:13 3 Hip Surgery completed Yumiko dukes [facility] 05/29/2024 09:33:51 Hip Surgery completed TRUONG ATWOOD [facility] 03/22/2024 08:36:50 Imaging Results Imaging Date Name Status LastModified by Organization Details LastModified Time 06/19/2024 arthrogram fluoroscopic guidance needle placement CPT 88570 / left completed [email or web address] [facility] ([facility]) [address], [place], [address], 06/19/2024 11:41:50 06/19/2024 rf, arthrogram hip inj left CPT 00171 completed [email or web address] [facility] ([facility]) [address] [place], [address], 06/19/2024 11:41:51 06/18/2024 MRI, knee, w/o contrast completed [email or web address] [facility] ([facility]) [address] [place], [address], 06/19/2024 12:28:39 06/19/2024 MRI, lower extremity joint(s), w/ contrast completed [email or web address] [facility] ([facility]) [address] [place], [address], 06/22/2024 13:55:48 08/12/2023 imaging/diagnost ic result completed Information not available 07/27/2024 20:09:24 07/07/2023 imaging/diagnost ic result completed Information not available 07/27/2024 20:09:39 08/29/2024 CT, hip, w/o contrast completed [email or web address] [facility] [place] [address] [address], [place], [address], 08/30/2024 12:01:54 Procedure Notes None recorded. Medical Equipment None Reported. Allergies No known drug allergies Medications Name Sig Start Date Stop Date Status Note LastModified by Organization Details LastModified Time amoxicillin 500 mg capsule 05/29 completed Not Available Not Available Not Available aspirin 325 mg tablet TAKE 1 TABLET ONCE A DAY FOR 2 WEEKS POST SURGERY 05/29 completed Not Available Not Available Not Available meloxicam 15 mg tablet TAKE 1 TABLET BY MOUTH EVERY DAY WITH MEALS active Not Available Not Available No t Available benzonatate 100 mg capsule active Not Available Not Available Not Available gabapentin 300 mg capsule TAKE 1 CAPSULE 3 TIMES PER DAY MAY CAUSE DROWSINES S. 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 active Not Available Not Available No t Available oxycodone 5 mg tablet TAKE 1 TABLET EVERY 6 HOURS. START AFTER SURGERY. DO NOT DRIVE WHILE TAKING THIS MEDICATIO N 05/29 completed Not Available Not Available Not Available oxycodone HCl-oxycodo ne-ASA 1 every 6 hours. START MEDICATIO N AFTER SURGERY. DO NOT DRIVE WHILE TAKING THIS MEDICATIO N 05/29 completed Statu s: 'Curr ent'; Not Available Not Available Not Available Vitals Date Recorded Body height Body mass index (BMI) Body weight Provider Name and Address Organization Details Last Updated DateTime 05/29/2024 187.96 cm 27.6 kg/m2 63563.36 g Yumiko dukes [facility] 05/29/2024 09:34:00 Date Recorded Body height Body mass index (BMI) Body weight Provider Name and Address Organization Details Last Updated DateTime 06/21/2024 187.96 cm 27.6 kg/m2 99182.36 g Yumiko dukes [facility] 06/21/2024 09:48:12 Date Recorded Body height Body mass index (BMI) Body weight Provider Name and Address Organization Details Last Updated DateTime 08/16/2024 187.96 cm 27.6 kg/m2 03368.36 g Yumikodylan dukes [facility] 08/16/2024 09:31:13 Date Recorded Body height Body mass index (BMI) Body weight Provider Name and Address Organization Details Last Updated DateTime 11/15/2024 187.96 cm 27.6 kg/m2 67972.36 jen Yumiko dukes [facility] 11/15/2024 11:04:32 Social History Question Answer Notes LastModified by Organizat ion Details LastModified Time Tobacco Smoking Status Never Smoker TRUONG ferguson [facility] 03/22/2024 08:36:39 What Is Your Level Of Alcohol Consumption? Occasional Information not available 03/22/2024 How Many Times Per Week Do You Consume Alcohol? 1-2 Times Per Week Information not available 03/22/2024 Have You Ever Been Counseled For Unhealthy Alcohol Use? No Information not available 03/22/2024 What Is Your Relationship Status? Information not available 06/21/2024 Do You Use Any Illicit Or Recreational Drugs? No Information not available 03/22/2024 Do You Or Have You Ever Used Any Other Forms Of Tobacco Or Nicotine? Yes Information not available 06/21/2024 Sex: Unknown Functional Status None recorded. Mental Status None recorded. Family History Nothing Reported. Medical History Condition Response Allergies/Hayfever N Coronary Artery Disease N Anxiety/Depression Y Emphysema N Thyroid Problems N COPD N Pacemaker N Anemia N Kidney/Bladder Problems N Vascular Disease N Heart Attack (PA) N Gastrointestinal Disease N Diabetes N Autoimmune disease N Bleeding Disorder N Orthotics N Arthritis N Seizures/Epilepsy N Blood Clot N AIDS/HIV N Congestive Heart Failure (CHF) N Acid Reflux (GERD) N Cancer N Stroke N Asthma N Peripheral Vascular Disease N Sleep Apnea N Hepatitis N Heart Disease N Rheumatoid Arthritis N Arrhythmia N Pulmonary Embolism N Fibromyalgia N Hypertension N Osteoporosis N Past Encounters Encounter ID Performer Location Encounter Start Date Encounter Closed Date Diagnosis/Indication Diagnosis SNOMED-CT Code Diagnosis ICD10 Code Diagnosis Note [id number] Dimitri Ocasio MD [facility] [address] [place] [address] 03/22/2024 08:30:08 04/11/2024 07:20:25 Pain of left knee joint 4982853733 17859 M25.562 Pain of le ft hip joint 8826856532 28990 M25.552 Sprain of left hip 27294 54070 4625379 S73.102D [id number] [facility] [address] [facility] [place] [address] 04/19/2024 08:17:37 04/19/2024 10:38:12 Osteoarthritis of left hip joint 4506699929 33643 M16.12 [id number] Dimitri Ocasio MD [facility] [address] [place] [address] 05/29/2024 09:26:37 06/26/2024 07:38:48 Pain of left knee joint 2486476278 15516 M25.562 Pain of le ft hip joint 2668225449 70545 M25.946 [id number] Dimitri Ocasio MD [facility] [address] [place] [address] 06/21/2024 09:42:30 07/14/2024 09:24:19 Pain of left knee joint 4794361431 46897 M25.562 Pain of le ft hip joint 5059756205 95109 M25.552 Sprain of left hip 80360 91739 1901427 S73.102D [id number] [facility] [address] [place] [address] 08/16/2024 09:25:14 09/13/2024 13:43:49 Postoperative visit 341786232 Z48.89 Sprain of left hip 60165 97307 5354780 S73.102D [id number] Dimitri Ocasio MD [facility] 2nd floor [address] [place] [address] 08/31/2024 17:06:14 09/19/2024 13:32:01 Sprain of left hip 3457354918 1424880 S73.102D [id number] [facility] [address] [place] [address] 11/15/2024 10:58:54 12/11/2024 11:06:37 Sprain of left hip 4624511102 0610495 S73.192D Health Concerns Section Related Observation LastModified by Organization Detai ls LastModified Time None Recorded Concern Status LastModified by Organization Details LastModified Time None Recorded Advance Directives Directive None Recorded Payers Encounter Date Sequence Insurance Name Policy Number Policy Rojas Covered Member ID Rojas Member ID Guarantor Name 05/29/2024 1 [employer] () [employer]ables [id number] [employer] 06/21/2024 1 [employer] () [employer] [id number] [employer] 08/16/2024 1 [employer] () Blake [employer]ables [id number] [employer] 08/31/2024 1 [employer] () Blake Cables [id number] Blake Cables 11/15/2024 1 [facility] [place] Blake Cables [id number] Blake [employer] Notes Date Note Type Note Provider Name and Address Organization Details Recorded Time 4 text/html Chief complaint: Post op visitInterval history: Patient following up today for his left hip. At last visit he reported left hip and left knee pain. Patient had intra-articular hip injection April 19, 2024. Reports the injection did provide about 1 week of relief however his symptoms have returned. Feels possibly slightly better but still significant pain which she rates 6 out of 10 today. He also continues to have knee pain localizing to the anterior aspect of his knee. HPI: Patient is a 33-year-old male here for post op visit status post left hip arthroscopy, labral repair, and femoroplasty performed on October 17, 2023. Patient was last seen January 12, 2024. He had been taking Mobic daily. At last visit recommended that he discontinue the Mobic and start gabapentin. He reports he had odd dreams on gabapentin and discontinued the medication. He has only taken the Mobic 3 times for severe pain in the last 2 months. He does continue to struggle with hip pain and in the last few months reports new onset knee pain and snapping localizing to the lateral joint line. Feels that he has plateaued in regards to his hip. Patient reports his knee is more painful than his hip with activity such as driving for extended period of time. He has been attending physical therapy. Dimitri Ocasio MD [address] [place] [address] [address], [place], [address], [facility] 05/29/2024 12:16:02 4 text/html Chief complaint: Post op visitInterval history: Patient here today for MRI review left hip and left knee. He reports symptoms are unchanged. He has been using less anti-inflammatories. He reports still having anterior hip and anterior knee pain. He reports hip pain present with activity such as standing, walking, sitting, squatting. To recap last visit May 29, 2024: Patient following up today for his left hip. At last visit he reported left hip and left knee pain. Patient had intra-articular hip injection April 19, 2024. Reports the injection did provide about 1 week of relief however his symptoms have returned. Feels possibly slightly better but still significant pain which she rates 6 out of 10 today. He also continues to have knee pain localizing to the anterior aspect of his knee. HPI: Patient is a 33-year-old male here for post op visit status post left hip arthroscopy, labral repair, and femoroplasty performed on October 17, 2023. Patient was last seen January 12, 2024. He had been taking Mobic daily. At last visit recommended that he discontinue the Mobic and start gabapentin. He reports he had odd dreams on gabapentin and discontinued the medication. He has only taken the Mobic 3 times for severe pain in the last 2 months. He does continue to struggle with hip pain and in the last few months reports new onset knee pain and snapping localizing to the lateral joint line. Feels that he has plateaued in regards to his hip. Patient reports his knee is more painful than his hip with activity such as driving for extended period of time. He has been attending physical therapy. Dimitri Ocasio MD [address] [place] [address] [address], [place], [address], [facility] 06/21/2024 12:49:53 4 text/html Chief complaint: Post op visitInterval history: Patient today for routine follow-up visit. He reports unchanged symptoms. Continues to have anterior hip pain along with some mild lateral hip pain and knee pain. He rates his pain level 5 out of 10. He has been using anti-inflammatories and Tylenol intermittently. To recap last visit June 21, 2024: Patient here today for MRI review left hip and left knee. He reports symptoms are unchanged. He has been using less anti-inflammatories. He reports still having anterior hip and anterior knee pain. He reports hip pain present with activity such as standing, walking, sitting, squatting. To recap last visit May 29, 2024: Patient following up today for his left hip. At last visit he reported left hip and left knee pain. Patient had intra-articular hip injection April 19, 2024. Reports the injection did provide about 1 week of relief however his symptoms have returned. Feels possibly slightly better but still significant pain which she rates 6 out of 10 today. He also continues to have knee pain localizing to the anterior aspect of his knee. HPI: Patient is a 33-year-old male here for post op visit status post left hip arthroscopy, labral repair, and femoroplasty performed on October 17, 2023. Patient was last seen January 12, 2024. He had been taking Mobic daily. At last visit recommended that he discontinue the Mobic and start gabapentin. He reports he had odd dreams on gabapentin and discontinued the medication. He has only taken the Mobic 3 times for severe pain in the last 2 months. He does continue to struggle with hip pain and in the last few months reports new onset knee pain and snapping localizing to the lateral joint line. Feels that he has plateaued in regards to his hip. Patient reports his knee is more painful than his hip with activity such as driving for extended period of time. He has been attending physical therapy. Physical examLess antalgic gaitPatient appears comfortable, no distressArthroscopic portal incisions well healed. No tenderness to palpation over the greater trochanter. Mild tenderness palpation over the anterior iliac crest and proximal hip flexorsSoft compressible compartmentsPassive range of motion: Hip flexion 100degrees, internal rotation 10 degrees, external rotation 25 degrees. Pain with hip flexion past 100 degrees and positive FADIR. Negative FABERNo tenderness to palpation at the calfNeurovascularly intact distally SIDE: {{Left* Right Bilateral}} KneeGAIT: NormalINSPECTION: No effusion, No soft tissue swelling. Normal alignmentPALPATION: No medial or lateral joint line tenderness palpation. Positive tenderness palpation over the patellar tendon.NEURO: Unremarkable. No motor or sensory deficitsROM: 0-135 Degrees with mild pain with deep knee flexionLACHMAN: NegativePIVOT SHIFT: NegativeMCMURRAY: NegativeVARUS/VALGUS STRESS TESTING: No laxity/pain at 0 and 30 degrees X-rays 3 views Previously obtained and reviewed today: AP, false profile, and modified Clancy view Left hip: Postsurgical changes status post femoroplasty. There is no joint space narrowing. Lateral center edge angle 34 degrees, alpha angle 56 degrees with mild residual cam deformity X-rays 3 views Left knee ordered, obtained, and personally reviewed today Weight bearing AP, Lateral, and sunrise views: Demonstrates no joint space narrowing medial, lateral, patellofemoral compartment. No effusion, loose bodies or fracture MRI left knee obtained on June 18, 2024, images and report independent reviewed: Medial lateral meniscus intact. There is signal change posterior horn medial meniscus consistent with degeneration. articular cartilage intact. Cruciate and collateral ligaments intact. MR arthrogram left hip obtained on June 19, 2024, images and report independent reviewed: Postsurgical changes at the anterior superior labrum without discernible tear. T2 signal at the femoral head neck junction likely postsurgical. Articular cartilage intact. Impression: 33-year-old male status post op visit status post left hip arthroscopy, labral repair, and femoroplasty performed on October 173Plan:No significant changes in respect to his left hip symptoms. Recommend he continue with home exercise program and [id number] medication. He has had 1 steroid injection after surgery. Reports about 30% symptom relief. May want to consider ultrasound-guided intra-articular anesthetic injection before considering another surgery. Would also recommend waiting at least a year before considering any further surgical intervention. If still symptomatic at the 1 year point, may consider revision left hip arthroscopy, possible labral repair, possible labral debridement, acetabuloplasty, and femoroplasty. I discussed with the patient that occasionally labral reconstruction is indicated and I do not perform this procedure. He does have second opinion upcoming with a music specialist in [place]. We are going to order a CT scan of the left hip to better evaluate the bony anatomy and assess for any residual cam or pincer deformity. We will follow-up via telemedicine in 2 weeks. Updated work note with restrictions was provided Dimitri Ocasio MD [address] [place] [address], [id number], [facility] 08/16/2024 13:05:08 4 text/html Chief complaint: Left hip pain Interval history: Patient had CT scan left hip. He reports symptoms unchanged. He has evaluation for second opinion with hip surgeon and [place] scheduled for next week. To recap last visit August 16, 2024: Patient today for routine follow-up visit. He reports unchanged symptoms. Continues to have anterior hip pain along with some mild lateral hip pain and knee pain. He rates his pain level 5 out of 10. He has been using anti-inflammatories and Tylenol intermittently. To recap last visit June 21, 2024: Patient here today for MRI review left hip and left knee. He reports symptoms are unchanged. He has been using less anti-inflammatories. He reports still having anterior hip and anterior knee pain. He reports hip pain present with activity such as standing, walking, sitting, squatting. To recap last visit May 29, 2024: Patient following up today for his left hip. At last visit he reported left hip and left knee pain. Patient had intra-articular hip injection April 19, 2024. Reports the injection did provide about 1 week of relief however his symptoms have returned. Feels possibly slightly better but still significant pain which she rates 6 out of 10 today. He also continues to have knee pain localizing to the anterior aspect of his knee. HPI: Patient is a 33-year-old male here for post op visit status post left hip arthroscopy, labral repair, and femoroplasty performed on October 17, 2023. Patient was last seen January 12, 2024. He had been taking Mobic daily. At last visit recommended that he discontinue the Mobic and start gabapentin. He reports he had odd dreams on gabapentin and discontinued the medication. He has only taken the Mobic 3 times for severe pain in the last 2 months. He does continue to struggle with hip pain and in the last few months reports new onset knee pain and snapping localizing to the lateral joint line. Feels that he has plateaued in regards to his hip. Patient reports his knee is more painful than his hip with activity such as driving for extended period of time. He has been attending physical therapy. Physical exam findings at last visitPhysical examLess antalgic gaitPatient appears comfortable, no distressArthroscopic portal incisions well healed. No tenderness to palpation over the greater trochanter. Mild tenderness palpation over the anterior iliac crest and proximal hip flexorsSoft compressible compartmentsPassive range of motion: Hip flexion 100degrees, internal rotation 10 degrees, external rotation 25 degrees. Pain with hip flexion past 100 degrees and positive FADIR. Negative FABERNo tenderness to palpation at the calfNeurovascularly intact distally X-rays 3 views Previously obtained AP, false profile, and modified Clancy view Left hip: Postsurgical changes status post femoroplasty. There is no joint space narrowing. Lateral center edge angle 34 degrees, alpha angle 56 degrees with mild residual cam deformity MR arthrogram left hip obtained on June 19, 2024, images and report independent reviewed: Postsurgical changes at the anterior superior labrum without discernible tear. T2 signal at the femoral head neck junction likely postsurgical. Articular cartilage intact. CT scan left hip demonstrates postsurgical changes status post femoroplasty. Alpha angle under 60 degrees with some residual cam deformity distal femoral neck. Unchanged bone island of the lesser trochanter. Impression: 33-year-old male status post op visit status post left hip arthroscopy, labral repair, and femoroplasty performed on October 173Plan:Reviewed CT scan results with the patient today. Patient may have some residual distal cam deformity as seen on the plain films. He reports ongoing groin pain without significant changes from last visit. He has evaluation with another hip specialist for second opinion next week. If ongoing symptoms refractory to extensive conservative treatment, may consider left hip revision arthroscopy, labral repair versus labral debridement, acetabuloplasty and femoroplasty. He did have slight diminutive superior labrum. Discussed that he may benefit from labral reconstruction in the setting of a revision arthroscopy with a irreparable or diminutive labrum. At this time I am not performing that procedure. Patient had chance to have all questions answered. He will reach out after visit with other hip specialist. All questions answered today. Total duration of today's telemedicine visit was 6 minutes. Dimitri Ocasio MD [address] [place] [address] [address], [place], [id number], [facility] 08/31/2024 17:07:05 4 text/html Chief complaint: Left hip pain Interval history: Patient following up today for his left hip. He reports still having moderate hip pain which she rates 6 out of 10. He reports some days his symptoms are only mild and intermittent, some days severe, constant pain localizing to the anterior hip. He has been using anti-inflammatories intermittently. Has not been in PT for the last several weeks. He is working at light duty. He had second opinion with sports provider in [place]. He also had x-rays of his lumbar spine which were negative. To recap last visit August 31, 2024: Patient had CT scan left hip. He reports symptoms unchanged. He has evaluation for second opinion with hip surgeon and [place] scheduled for next week. To recap last visit August 16, 2024: Patient today for routine follow-up visit. He reports unchanged symptoms. Continues to have anterior hip pain along with some mild lateral hip pain and knee pain. He rates his pain level 5 out of 10. He has been using anti-inflammatories and Tylenol intermittently. To recap last visit June 21, 2024: Patient here today for MRI review left hip and left knee. He reports symptoms are unchanged. He has been using less anti-inflammatories. He reports still having anterior hip and anterior knee pain. He reports hip pain present with activity such as standing, walking, sitting, squatting. To recap last visit May 29, 2024: Patient following up today for his left hip. At last visit he reported left hip and left knee pain. Patient had intra-articular hip injection April 19, 2024. Reports the injection did provide about 1 week of relief however his symptoms have returned. Feels possibly slightly better but still significant pain which she rates 6 out of 10 today. He also continues to have knee pain localizing to the anterior aspect of his knee. HPI: Patient is a 33-year-old male here for post op visit status post left hip arthroscopy, labral repair, and femoroplasty performed on October 17, 2023. Patient was last seen January 12, 2024. He had been taking Mobic daily. At last visit recommended that he discontinue the Mobic and start gabapentin. He reports he had odd dreams on gabapentin and discontinued the medication. He has only taken the Mobic 3 times for severe pain in the last 2 months. He does continue to struggle with hip pain and in the last few months reports new onset knee pain and snapping localizing to the lateral joint line. Feels that he has plateaued in regards to his hip. Patient reports his knee is more painful than his hip with activity such as driving for extended period of time. He has been attending physical therapy. Physical examPhysical examNormal gaitPatient appears comfortable, no distressArthroscopic portal incisions well healed. No tenderness to palpation over the greater trochanter. Mild tenderness palpation over the anterior iliac crest and proximal hip flexorsSoft compressible compartmentsPassive range of motion: Hip flexion 100degrees, internal rotation 10 degrees, external rotation 25 degrees. Pain with hip flexion past 90degrees and positive FADIR. Positive e FARTUNERYa tenderness to palpation at the calfNeurovascularly intact distally X-rays 3 views Previously obtained AP, false profile, and modified Clancy view Left hip: Postsurgical changes status post femoroplasty. There is no joint space narrowing. Lateral center edge angle 34 degrees, alpha angle 56 degrees with mild residual cam deformity MR arthrogram left hip obtained on June 19, 2024, images and report independent reviewed: Postsurgical changes at the anterior superior labrum without discernible tear. T2 signal at the femoral head neck junction likely postsurgical. Articular cartilage intact. CT scan left hip demonstrates postsurgical changes status post femoroplasty. Alpha angle under 60 degrees with some residual cam deformity distal femoral neck. Unchanged bone island of the lesser trochanter. Impression: 33-year-old male status post op visit status post left hip arthroscopy, labral repair, and femoroplasty performed on October 173Plan:Reviewed the above diagnosis with the patient today. Patient reports unchanged symptoms despite physical therapy, oral medication, postoperative intra-articular corticosteroid injection. He had no improvement after the intra-articular injection. As it has been over a year since surgery, we discussed that he may not expect to have improvement with continued nonoperative treatment. We discussed options including continued nonop care, considering another opinion with hip specialist, or surgery: Left hip revision arthroscopy, possible labral repair, possible labral debridement, possible acetabuloplasty, possible femoroplasty. We discussed results after revision arthroscopy may not be as predictable as primary surgery. Also discussed the potential that the labrum may be diminutive or irreparable and he may benefit from labral reconstruction which I do not perform. At surgery, in the best case scenario, the labrum could be healed and he has adhesions that can be resected. Risks, benefits, and alternatives to the procedure were discussed at length with the patient. Risks discussed included but were not limited to bleeding, infection, damage to neurovascular structures, pain after surgery, incomplete or transient symptom relief, progression of arthritis, potential need for future total hip arthroplasty, transient or potentially permanent paresthesias/neurologic deficits, hip stiffness, heterotopic ossification, medical and anesthesia complications, and thromboembolic events. Reasonable expectations, postoperative restrictions, and typical rehab plan were discussed. Patient had a chance to have all questions answered today. He would like to think over his options whether he wishes to continue conservative care, having revision arthroscopy with me, or having another opinion with hip specialist. He is provided contact information for our neurosurgical nurse practitioner and can call to schedule surgery at his convenience. Updated work note with restrictions provided. Dimitri Ocasio MD [address] [place] [address] [address], [place], [id number], [facility] 11/15/2024 13:07:07
--- OUTSIDE RECORDS SUMMARY | 2025-01-31 19:23 | XMS_ITS ---
Author Name [facility] Organization Unknown Results Test Name/Text Value Interpretation Date Range Source SARS-COV-2 PCR (CEPHEID) Negative Normal [id number] [facility] Problems Problem Status Onset Date Problem Type Date of Resolution Source Femoroacetabular impingement of left hip active EncounterDiagnosisAct [facility] Lumbar radicular pain active EncounterDiagnosis Act [facility] Pain of left hip active 2024-10-15 ProblemAct C FRANK
--- OUTSIDE RECORDS SUMMARY | 2025-01-31 19:23 | XMS_ITS | Clinical Summary ---
Author Organization [facility] [place] [address] [place] [address] Care Team Providers Care Surfacing Technician Name Role Phone Unavailable Primary Care Provider Unavailabl e Social History Tobacco Use Types Packs/Day Years Used Date Smoking Tobacco: Never Assessed Sex and Gender Information Value Date Recorded Sex Assigned at Not on file Legal Sex Male 3:48 AM PST Gender Identity Not on file Sexual Orientation Not on file Plan of Treatment Not on file
--- OUTSIDE RECORDS SUMMARY | 2025-01-31 19:23 | XMS_ITS | Continuity of Care Document ---
Author Name [facility] Organization [facility] Care Team Providers Care Special Education Associate Name Role Phone [facility] Unavailable Unavailable Medications Combined list of outpatient medications from Department of Defense and Veterans Affairs facilities.Medications provided include 1) outpatient medications from the last 15 months, and 2) patient-reported medications. Medication Details Route Status Patient Instructions Prescription Expires Prescription Number Last Dispense Date Ordering Provider Order Date Order Qty Source GABAPENTIN (gabapentin ), 300 MG, CAPSULE, ORAL, CIPLA [employer] 500 ea. BOTTLE Active [id number] 2023 90 Pharmac y Data Transac tion Service Facilit y MELOXICAM (MELOXICAM) , 15 MG, TABLET, ORAL, CIPLA [employer] 100 ea. BOTTLE Active [id number] 2023 30 Pharmac y Data Transac tion Service Facilit y MELOXICAM (MELOXICAM) , 15 MG, TABLET, ORAL, CIP[employer] 100 ea. BOTTLE Active [id number] 2023 30 Pharmac y Data Transac tion Service Facilit y MELOXICAM (MELOXICAM) , 15 MG, TABLET, ORAL, CIP[employer] 100 ea. BOTTLE Active [id number] 4 2023 30 Pharmac y Data Transac tion Service Facilit y Immunizations Combined list of available immunizations from the Department of Defense and Veterans Affairs facilities. Immunization Series Date Given Administered By Site Reaction Lot Number CVX Code Drug Tenter Frame Back Tender Status Comments Source influenza virus vaccine, inactivated 2020 [id number] Seqirus complet ed influenza virus vaccine, inactivat ed 10/30/21 Given Ambulat ory Pharmac y COVID Vaccine Pfizer 2020 [id number] PFIZER complet ed COVID Vaccine Pfizer 09/11/21 Given Ambulat ory Pharmac y COVID Vaccine Pfizer 2020 [id number] PFIZER complet ed COVID Vaccine Pfizer 08/14/21 Given Ambulat ory Pharmac y influenza, injectable, quadrivalent- pf 2019 [id number] 150 Seqirus complet ed influenza , injectabl e, quadrival ent-pf 10/06/20 Given Ambulat ory Pharmac y tetanus, diphtheria, acellular pertu is 2019 [id number] 115 sanofi pasteur complet ed tetanus, diphtheri a, acellular pertussis 10/06/20 Given Ambulat ory Pharmac y Influenza, inj, MDCK, quadrivalent- pf 2018 171 complet ed Influenza , inj, MDCK, quadrival ent-pf 09/13/19 Given Ambulat ory Pharmac y Influenza, inj, MDCK, quadrivalent- pf 2017 171 complet ed Influenza , inj, MDCK, quadrival ent-pf 08/29/18 Given Ambulat ory Pharmac y influenza, seasonal, injectable 2017 [id number] Seqirus complet ed influenza , seasonal, injectabl e 08/29/18 Given Ambulat ory Pharmac y influenza virus vaccine, inactivated 2016 [id number] Seqirus complet ed influenza virus vaccine, inactivat ed 10/15/17 Given Ambulat ory Pharmac y influenza, seasonal, injectable-pf 2015 [id number] 140 Seqirus complet ed influenza , seasonal, injectabl e-pf 08/28/16 Given Ambulat ory Pharmac y influenza, seasonal, injectable 2014 [id number] 141 CSL Behring complet ed influenza , seasonal, injectabl e 09/29/15 Given Ambulat ory Pharmac y Influenza, seasonal, injectable, preservative free 2014 AMANDEEP, () Not Given Influenza , seasonal, injectabl e, preservat elda free [facility] influenza, seasonal, injectable 2014 [id number] 141 CSL Behring complet ed influenza , seasonal, injectabl e 11/29/14 Given Ambulat ory Pharmac y influenza, seasonal, injectable 2013 [id number] 141 CSL Behring complet ed influenza , seasonal, injectabl e 08/15/14 Given Ambulat ory Pharmac y influenza, seasonal, injectable-pf 2012 140 complet ed influenza , seasonal, injectabl e-pf 08/30/13 Given Ambulat ory Pharmac y influenza, seasonal, injectable 2011 TRANSCR IBED 141 Novartis Pharmaceutica ls complet ed influenza , seasonal, injectabl e 09/28/12 Given Ambulat ory Pharmac y influenza, seasonal, injectable-pf 2011 140 Novartis Pharmaceutica ls complet ed influenza , seasonal, injectabl e-pf 09/01/12 Given Ambulat ory Pharmac y influenza virus vaccine, live 2010 [id number] 111 [employer] comple t ed influenza virus vaccine, live 10/16/11 Given Ambulat ory Pharmac y hepatitis A adult vaccine 2010 [id number] 52 GlaxoSmithKli ne complet ed hepatitis A adult vaccine 01/31/11 Given Ambulat ory Pharmac y influenza virus vaccine,split 2009 [id number] 15 CSL Behring complet ed influenza virus vaccine,s plit 10/17/10 Given Ambulat ory Pharmac y measles/mumps /rubella virus vaccine 2009 [id number] Merck & Company Inc complet ed measles/m umps/rube lla virus vaccine 05/13/10 Given Ambulat ory Pharmac y Hep A, pediatric, unspecified formul 2009 [id number] 1AA 31 GlaxoSmithKli ne complet ed Hep A, pediatric , unspecifi ed formul 05/13/10 Given Ambulat ory Pharmac y tuberculin purified protein derivative 2009 [id number] 96 sanofi pasteur complet ed tuberculi n purified protein derivativ e 05/10/10 Given Ambulat ory Pharmac y poliovirus vaccine, inactivated 2009 [id number] 10 sanofi pasteur complet ed polioviru s vaccine, inactivat ed 05/07/10 Given Ambulat ory Pharmac y Novel influenza-H1N 1-09,pf,injec table 2009 [id number] 1A 126 CSL Behring complet ed Novel influenza -N9S3-33, pf,inject able 05/07/10 Given Ambulat ory Pharmac y tetanus, diphtheria, acellular pertu is 2009 [id number] 1CA 115 GlaxoSmithKli ne complet ed tetanus, diphtheri a, acellular pertussis 05/07/10 Given Ambulat ory Pharmac y influenza virus vaccine,split 2009 [id number] 1A 15 CSL Behring complet ed influenza virus vaccine,s plit 05/07/10 Given Ambulat ory Pharmac y meningococcal A,C,Y,W-135 (MCV4P) 2009 [id number] 114 sanofi pasteur complet ed meningoco ccal A,C,Y,W-1 35 (MCV4P) 05/07/10 Given Ambulat ory Pharmac y Results Combined list of recent chemistry, hematology and other laboratory results from Department of [facility] and Veterans Affairs, ranging from 15 months to all on record, depending upon the facility. Order Name Results Value Reference Range Date Interpretation Specimen Comments Source Infectiou s Disease HIV-1/O/2 Non-Reac tive 1 (01/10/25 9:08 AM) 01/10 N Interpretiv e Data: INTERPRETAT ION: This method is a screening procedure for the detection of HIV p24 Antigen and Antibodies to HIV-1, including Group O, and/or HIV-2. NON-REACTIV E: HIV-1 antigen and HIV-1 / HIV-2 antibodies were not detected. No laboratory evidence of HIV infection. A negative test result does not exclude the possibility of exposure to or infection with HIV. HIV antibodies and/or p24 antigen may be undetectabl e in some stages of the infection and in some clinical conditions. If acute HIV infection is suspected, consider submitting another specimen to a reference laboratory for HIV-1 RNA. SCREEN REACTIVE - CONFIRMATIO N TO FOLLOW: Possible presence of HIV-1antibo dies, HIV-2 antibodies and/or HIV-1 p24 antigen. Specimen will reflex to the confirmatio n testing that fulfills the Center for Disease Control and Prevention' s HIV diagnostic algorithm. Refer to [facility] Lab Guide for additional information : [email or web address] x Testing performed by Kendra alicia [address] [employer] [facility] Miscellan eous Sendouts Repository Sample Received (01/10/25 9:08 AM) 01/10 N [employer] [facility] Encounters Combined list of: 1) Encounters from Department of Veterans Affairs facilities going backup to the last 18 months, not all VA inpatient encounters are included; 2) Encounters from the Department of [facility] facilities going backup to 280 months. Location Location Details Encounter Type Encounter Number Reason For Visit Attending Provider ADM Date DC Date Status Disposition Source 8344R-439 AMDS Between Visit [id number] 10/04 Discharge Disposition: Home or Self Care 8344R-4 39 AMDS 8344R-439 AMDS Between Visit [id number] 10/29 Discharge Disposition: Home or Self Care 8344R-4 39 AMDS 8344R-439 AMDS Between Visit [id number] 11/26 Discharge Disposition: Home or Self Care 8344R-4 39 AMDS 8344R-439 AMDS Between Visit [id number] 12/25 Discharge Disposition: Home or Self Care 8344R-4 39 AMDS 8344R-439 AMDS Outpatient [id number] BASHIR FERNÁNDEZ 01/18 Discharge Disposition: Home or Self Care 8344R-4 39 AMDS Procedures Combined list of: 1) Procedures from Department of [facility] Affairs facilities [facility], not all [place] non-surgical procedures are included; 2) All procedures from the Department of Defense facilities. Procedure Procedure Type Code Date Perfomer Comments Sourc e THERAPEUTIC, PROPHYLACTIC, OR DIAGNOSTIC INJECTION (SPECIFY SUBSTANCE OR DRUG); SUBCUTANEOUS OR INTRAMUSCULAR 05/13/2010 [facility] No data available for this section Ambulato ry Pharmacy Social History Combined list of available smoking, tobacco, and other social history from Department of Defense and Veterans Affairs facilities. Social History Type Response Date Comment Sourc e Sex Representation Male 12/09/2022 Unknow n Organization This section is an empty soc ial history section. DoD Sexual Orientation Ambula tory Pharmacy Gender identity Ambulator y Pharmacy Assessment and Plan Combined list of future care activities from Department of Defense and Veterans Affairs facilities (e.g., assessment and plan notes, appointments, orders, and referrals). Additional future care activities may be listed in the Plan of Care section. Result Assessment and Plan Date Source Assessment and Plan Extracted from:Title : [facility] PHA / MHA Author: YADIEL BECKETT Date: 03/02/24 mbr came in for appt Addendum by ESPERANZA ARDON on March 02, 2024 10:34 EDT Optometry: Color Vision: NORMAL/PASS Confrontational Clarke:NORMAL/PASS Visual Acuities: DVA: UNCORRECTED OD:20/20 OS: 20/20 NVA: UNCORRECTED OD:20/20 OS:20/20 MEETS STANDARDS: YES Addendum by MARIIA MORGAN on March 02, 2024 10:50 EDT ?Vitals: Blood Pressure:???129/81 Heart Rate:68 Height:74 Weight:210 BMI: Medications: ?Hydroxyzine 25mg PRN Meloxicam 15mg PRN Benzonatate PRN Gabapentin 300mg (DS) Chronic Problems: ?Anxiety SF 507: _ Comments: Addendum by BASHIR BAL MD on March 02, 2024 12:08 EDT Chief Complaint: Member here for annual PHA.?No acute complaints.?IMR?green. HEENT:?Normal Joints:?Normal Lungs:?Normal Heart:?Normal Comments: ?ANNUAL PERIODIC HEALTH ASSESSMENT I. INTERNAL SPECIALIST INFORMATION AND DEMOGRAPHICS (SMI) 1. Last Name: BENJAMIN 2. First Name: JAMES 3. Middle Name: MARIA D 4. Assessment Date: 5. : 6. Age: 33 7. Gender: M 8. Do[employer] ID Number: [id number] 9. 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 Status: [employer] [place] 12. 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 Unit Name: [facility] tuul 14. Duty Station/Location: [place] [address]. [facility]: [id number] 16. Is this your first Periodic Health Assessment (PHA)?: N 17. Are you enrolled in a secure messaging system with your health care provider?: N 18. Current contact information: Preferred Method: Email 1 DSN: [id number] Day Time Phone: [phone] Night Time Phone: [phone] Email 1: [email or web address] Email 2: [email or web address] Address: [address] [place] [address] City: [facility]: [place] Zip Code: [address] 19. Point of contact who can always reach you: Name: Madeleine Alexander Phone 1: [phone] Phone 2: [phone] EMAIL: [email or web address] Address: [address] [place] [address] City: [facility]: [place] Zip Code: [address] II. DEPLOYMENT INFORMATION (DEP) 1. [ 0 ] Total number of deployments in the PAST 5 YEARS 4. [ N ] Are you going to deploy within the NEXT 120 DAYS? III. 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 [ Yes ] Does your specialty require an operational duty physical exam? 4. [ No ] Are you currently enrolled in a medical surveillance/occupational health program?: No IV. MEDICAL CONDITIONS (CHRISTIE): 1. Since your last PHA, have you experienced any of the following health conditions, and if so, what is your status? [ Periods of dizziness, fainting, or loss of consciousness ] Conditions with no medical care [ ] Conditions with medical care, but no longer under treatment [ ] Conditions with medical care, and NOW under treatment 2. Since your last PHA, have you experienced any of the following health conditions, and if so, what is your status? [ ] Conditions with no medical care [ ] Conditions with medical care, but no longer under treatment [ Recurring muscle, joint, or low back pain ] Conditions with medical care, and NOW under treatment 3. For any condition marked YES in question 1 or 2, are you currently on any profile or limited duty for that condition? [ Recurring muscle, joint, or low back pain ] Conditions 4. [ No ] Have you been based or stationed at a location where an open burn pit was used? 5. [ No ] Have you been exposed to toxic airborne chemicals or other airborne contaminants? 8. Have you had any surgery since your last PHA?: Yes 9. What was the condition(s) for which you had surgery and the type of surgery? 9.a. Condition: Left Hip Infringement 5.a.1 Type of Surgery: Hip Arthroscopic Surgery 9.b. Condition: 5.b.1 Type of Surgery: Labral Repair 9.c. Condition: 5.c.1 Type of Surgery: Femoroplasty 10.a. [ No ] Since your last PHA, has a health care provider recommended surgery(s) that you have not had? 11.a. [ No ] Do you currently require hearing aids, special medical supplies, CPAP, adaptive equipment, assistive technology devices, and/or other special accommodations? 12.a. [ Yes ] Do you have a waiver or profile for any part of your Service's physical fitness test? 12.b. [ Cardio EventCrunches/Sit-Ups, Push-Ups ] Which component(s) of your physical fitness test are waived/profiled? 13.a. [ Yes ] Do you have any problems wearing a gas mask, ballistic helmet, body armor, and/or chemical/biological protective garments? 13.b. [ Cannot carry the lindsay of any body armor while my hip is healing ] Please comment on these problems 14.a. [ No ] Have you ever been told by a health care provider that you SHOULD NOT receive an immunization for medical reasons? 15.a. [ Don't Know ] Do you have a permanent profile or an Assignment Limitation Code C? 16.a. [ Yes ] Are you on a temporary profile or limited duty? 16.b. [ Recovering from Hip Surgery ] Why? 17. [ 2 ] During the PAST 2 years, how many times have you been placed on a temporary profile or on limited duty? V. INDIVIDUAL MEDICAL READINESS (IMR) 1. [ No ] Do you have any allergies? 3. [ Not required ] Do you have red medical warning dog tags? 4. [ No ] Do you wear corrective lenses? . BEHAVIORAL HEALTH (MHA) 1. a. [ None ] Over the PAST MONTH, what major life stressors have you experienced that are a cause of significant concern or make it difficult for you to do your work, take care of things at home, or get along with other people (for example, serious conflicts with others, relationship problems, or a legal, disciplinary or financial problem)? 2. a. [ No ] In the PAST YEAR did you receive care for any mental health condition or concern such as, but not limited to post traumatic stress disorder (PTSD), depression, anxiety disorder, alcohol abuse or substance abuse? 3. [ Yes Meloxicam ] What prescription or over-the counter medications (including herbals/supplements) for sleep, pain, combat stress, or a mental health problem are you CURRENTLY taking? 4. a. [ No ] In the past 12 months, have you gambled? 5. a. [ 2-4 times a month ] How often do you have a drink containing alcohol? 5. b. [ 3 or 4 ] How many drinks containing alcohol do you have on a typical day when you are drinking? 5. c. [ Less than monthly ] How often do you have six or more drinks on one occasion? 6. Have you ever had any experience that was so frightening, horrible, or upsetting that in the PAST MONTH, you: 6. a. [ No ] Have had nightmares about it or thought about it when you did not want to? 6. b. [ No ] Tried hard not to think about it or went out of your way to avoid situations that remind you of it? 6. c. [ No ] Were constantly on guard, watchful or easily startled? 6. d. [ No ] Gravette numb or detached from others, activities, or your surroundings? 6. e. [ Not answered ] Gravette guilt or unable to stop blaming yourself or others for the event(s) or any problems the event(s) may have caused? 7. Over the LAST 2 WEEKS, how often have you been bothered by the following problems? 7. a. [ Not at all ] Little interest or pleasure in doing things 7. b. [ Not at all ] Feeling down, depressed, or hopeless 8. [ No ] Would you like to schedule an appointment with a health care provider to discuss any health concern(s)? 9. [ No ] Are you interested in receiving information or assistance for a stress, emotional or alcohol concern? 10. [ No ] Are you interested in receiving assistance for a family or relationship concern? 11. [ No ] Would you like to schedule a visit with a academic advisement director, mental health care provider, or a community support counselor? VII. FAMILY HISTORY AND LIFESTYLE (LIF) 1. [ Fair ] Overall, how would you rate your health during the PAST MONTH? 2. [ Cancer, Diabet ] Member indicates that family members have the following problems 3. The following family members has/had a history of cancer: Colon: Grandfather Ovarian: Grandmother Prostate: Grandfather Lung: Grandfather 5. The following family members has/had a history of diabetes: Type I: Grandfather Type II: Grandfather Unknown: Grandfather 6. [ No ] I participate in moderate intensity physical activites at least 2.5 hours, or a combination of moderate and vigorous aerobic activites, for at least 75 minutes per week. 7. In a typical week, I do physical activities specifically designed to STRENGTHEN my muscles: [ 0 ] Day(s) per week 8. [ Meloxicam, Tylenol ] What prescriptions or sjyo-kwq-qkairyt medications are you CURRENTLY taking for health problems on a ROUTINE BASIS? 9. Which of the following products have you taken since your last PHA: Multi-Vitamins: Once a week 11. Think about the PAST 30 DAYS. How often did you eat/drink the following foods/beverages? [ 3 to 6 servings per week ] Fruits [ 3 to 6 servings per week ] Vegetables [ Rarely or Never ] Starchy Vegetables [ 1 or 2 servings per week ] Whole Grains [ 1 or 2 servings per week ] Dairy and Calcium Containing Foods [ 1 or 2 servings per week ] Fish [ 1 serving per day ] Lean Protein [ 3 to 6 servings per week ] Sugar-Sweetened Beverages ] Have you had a cholesterol check by a health daycare teacher within the PAST 5 YEARS? 13.a. In the PAST 30 DAYS, which of the following products have you used on at least one day? None 15. Which of the following best describes your past tobacco use? I used tobacco in the past, but quit in 2019 16. [ No ] Are you regularly exposed to secondhand smoke? 17. [ 5 to less than 7 hours ] During the LAST 2 WEEKS, how many hours of sleep did you get on most days? 18. [ No ] During the LAST 2 WEEKS, have you felt impaired or unable to adequately perform due to sleepiness or poor quality sleep? 19. [ No ] Have you had any unexplained weight loss or gain since your last PHA? 20. Member is not at risk for sexually transmitted infections. 22. Since your last PHA, what, if anything, have you and your partner used to keep from getting ? [ I have a same sex partner(s). ] I am not actively taking steps to prevent as 23. [ No ] In the last year, have you or your partner had a scare, where you were not trying to get but were worried enough to use a home test? X. OTHER MEDICAL (OTH) 1. [ 5 ] Rate the amount of pain you have had, on average, over the PAST 24 HOURS 2. [ Yes ] Are you receiving treatment for pain? 3. [ Yes ] Since your last PHA, have you received care or treatment for any medical and/or mental health condition(s) from a civilian or non- facility? 4. List the condition(s) treated and where the care was provided: Conditions: Surgery and Physical Therapy Where: [facility], [facility], [facility], [facility] 5. Member acknowledged responsibility for reporting health issues. 7. [ No ] Woud you like to schedule an appointment with a health care provider to discuss any health concerns? XI. SEPARATION AND LONGTERM 1. [ No ] Are you planning to separate or retire within the next year from Active Duty or [place] Duty (activated for greater than 30 continuous days) OR do you intend to file a claim for disability compensation with the [employer]? PART B. RECORD REVIEW AND RECOMMENDATIONS I. RECORD REVIEWER INFORMATION 1. Last Name: LILLY 2. First Name: ISAK 3. Middle Name: XAVI 4. Service Branch: [employer] 5. Status: 6. 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 EMAIL: [email or web address] 8. Facility: [facility] 9. Unit: [facility] 10. Address: [facility] [address] [place] 11. State: [place] 12. Zip Code: [address] 13. Phone: [phone] 14. Date Record Review: II. MEDICAL SCREENING 1. [ ] Date of burn crew member's most recent PHA 2. [ 6 feet 1 inches Date: ] burn crew member's most recently documented height 3. [ 210 pounds Date: ] burn crew member's most recently documented weight 4. [ 132/76 Date: ] burn crew member's most recently documented blood pressure reading 5. [ No ] Does the burn crew member have a history of abnormal blood pressure since their last PHA? 6. [ Yes ] Does the burn crew member have a laboratory test of sickle cell trait documented in their permanent medical record? 7. [ No Cholesterol Test Documented ] What is the date of the burn crew member's most recently documented cholesterol test? 9. [ Meloxicam, Tylenol ] List of burn crew member's active medications listed in their permanent medical record 10. [ No ] Is there a discrepancy between the active medication record review and the burn crew member's self-reported list of medications? 11. [ Surgery and Physical Therapy ] List documented significant care the burn crew member has received since their last PHA from a provider OUTSIDE the Health System 12. [ No ] Is there a discrepancy between the burn crew member's list of OUTSIDE care (from OT5), and the OUTSIDE care found in the record? 13. [ No Inside Care Documented ] List documented significant care the burn crew member has received since their last PHA from a provider INSIDE the Health System 14. Is there documentation in the record for each surgery listed below? Left Hip Infringement/Hip Arthroscopic Surgery: Yes 15. [ Not Answered ] Confirm that vaccine exemptions are listed in the medical record for each vaccine listed III. OCCUPATION-SPECIFIC EXAMINATIONS 1. [ Record Unavailable ] When was the burn crew member's most recently documented special operational duty physical exam? IV. FAMILY HISTORY AND LIFESTYLE 1. [ Yes ] Does the [id number] reflect the burn crew member's reported family history? VII. INDIVIDUAL MEDICAL READINESS 1. [ No ] Does the burn crew member have an Assignment Limitation Code C? 2. [ 12 Expires: ] Number of months in the past year the burn crew member has been in temporary duty status 3. [ Classification: 2 ] Most recently documented dental exam 4. [ Yes ] Is the burn crew member current on all required immunizations in the immunization tracking system? 6. Does the burn crew member have the following laboratory tests documented in their permanent medical record? [ Yes ] HIV test within the PAST 24 months [ Yes ] G6PD results on file [ Yes ] Blood type and Rh on file [ Yes ] DNA test on file IX. ADDITIONAL RECORD REVIEWER COMMENTS 1. This record review indicates the potential need for provider notification or referral: Provider Notified 2. Additional comments about this record review that need to be forwarded to the Health Nail Setter completing PART C: Recent surgery for left hip. Has current restrictions/active AF469. 04/06 pain. Experienced periods of dizziness post-surgery; has since resolved. Takes multivitamin. Date Record Review Completed: PART C. HEALTH CARE PROVIDER I. MENTAL HEALTH ASSESSMENT (MHA) PROVIDER INFORMATION 1. Last Name: Deedee 2. First Name: Marycruz 3. Middle Name: 4. 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 Title: Other Licensed Mental Health Professional 7. EMAIL: [email or web address] 8. Facility: [facility] Admin Office 9. Unit: N/A 10. Address[facility] 11. State: [place] 12. Zip Code: [address] 13. 14. Date HCP Review initiated: 1. Member marked that they did not have a concern or a difficulty with a major life stressor. 2. Address concerns identified on member questions 2 and 3. History of mental health care: Not answered Member's response: Provider's comments: Medications: Not answered Member's response: Meloxicam Provider's comments: 3. Member's AUDIT-C screening score was 4. (nothing required) 4. Member did not lisa yes on two or more of questions 6a through 6e. 5. Member did not lisa More than half the days or nearly every day on question 7a or 7b. 6. Suicide risk evaluation. 6. a. Ask: Over the past month, have you wished you were or wished you could go to sleep and not wake up?: No 6. b. Ask: Have you actually had any thoughts of killing yourself?: No 6. f. 1. Ask: In you lifetime, have you done anything, started to do anything, or prepared to do anything to end your life?: No 6. g. Further risk assessment comments: SM denied any suicidal/homicidal ideation, intent, or plan at present time or by history. 7. Member states that they have not had thoughts or concerns over the past month that they might hurt or lose control with someone. 9. Summary of Provider's identified concerns needing referrals: None 11. Comments: A referral for clinical support does not appear indicated at this time. 13. Supplemental services recommended/information provided: No supplemental services required Date MHA Certified: III. PERIODIC HEALTH ASSESSMENT (PHA) PROVIDER INFORMATION 1. Last Name: VALERIANO 2. First Name: BASHIR 3. Middle Name: 4. Service Branch: [employer] 5. Status: Reservist 6. Title: Physician (DO KARON) 7. EMAIL: [email or web address] 8. Facility: [facility] 9. Unit: [address] [place], [place] [address] 10. Address: [address] [place] [address] [place] [address]. State: [facility]. Zip Code: [address] 13. Phone: [phone] 14. Date HCP Review initiated: IV. PERIODIC HEALTH ASSESSMENT PROVIDER RECOMMENDATIONS and REFERRALS 1. Provider concerns with this assessment: No issues or concerns identified V. SUMMARY AND COMMENTS 1. 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 Provider Comments: Member recovering from hip surgery, doing well. Follow up in 2 weeks. . INDIVIDUAL MEDICAL READINESS DISPOSITION DETERMINATION CHRISTIE: Not Ready DEN: Ready IMM: Ready LAB: Ready ME: Ready IMR Status: Partially Medically Ready VII. 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 Reference Aravind 6490.07 No (burn crew member currently has a medical condition that DOES require duty limitation(s) AND limits deployability) Date PHA Completed: END OF CT1729 REPORT Impression:Meets?medical standards per LASHON 48-123/MSD. Disposition:?No AF469 changes based on this encounter.World-Wide Qualified.Current AF469 for post hip surgery. 02/01/2025 [id number] AMDS Functional Status Combined list of recent functional and cognitive assessments recorded at Department of Defense and Veterans Affairs (VA).VA Functional [place] Measurement (FIM) Scale: 1 = Total Assistance (Subject = 0% +), 2 = Maximal Assistance (Subject = 25% +), 3 = Moderate Assistance (Subject = 50% +), 4 = Minimal Assistance (Subject = 75% +), 5 = Supervision, 6 = Modified [place] (Device), 7 = Complete [place] (Timely, Safely). Assessment Date/Time Source Assessment Type Assessment Skill Assessment Score Assessment Details No data available for this section
--- OUTSIDE RECORDS SUMMARY | 2025-01-31 19:23 | XMS_ITS | Clinical Summary ---
Author Organization Pending sale to [facility] Address [address] [place] [address] Care Team Providers Care Supplies Packer Name Role Phone Allen Jarvis Primary Care Provider [phone] Allergies No known active allergies Medications meloxicam (MOBIC) 15 mg tablet TAKE 1 TABLET BY MOUTH EVERY DAY WITH MEALS 02/10/2024 Active hydrOXYzine (ATARAX) 25 mg tablet 10/08/2021 Active Active Problems Problem Noted Date Diagnosed Date Pain of left hip 10/15/2024 Social History Tobacco Use Types Packs/Day Years Used Date Smoking Tobacco: Never Smokeless Tobacco: Never Tobacco Cessation:Counseling Given: Not Answered Comments:Nicotine pouches Alcohol Use Standard Drinks/Week Comments Yes 0 (1 standard drink = 0.6 oz pur e alcohol) occ Sex and Gender Information Value Date Recorded Sex Assigned at Not on file Legal Sex Male 8:37 AM EDT Gender Identity Not on file Sexual Orientation Not on file Last Filed Vital Signs Vital Sign Reading Time Taken Comments Blood Pressure 119/76 07/20/2024 2:21 PM EDT Pulse 91 07/20/2024 2:21 PM EDT Temperature 37.6 ??C (99.7 ??F) 07/20/2024 2:21 PM ED T Respiratory Rate - - Oxygen Saturation 98% 07/20/2024 2:21 PM EDT Inhaled Oxygen Concentration - - Weight 97.5 kg (215 lb) 10/15/2024 1:46 PM EST Height 188 cm (6' 2 ) 10/15/2024 1:46 PM EST Body Mass Index 27.6 10/15/2024 1:46 PM EST Plan of Treatment Health Maintenance Due Date Last Done Comments HIV Screening 1991 Hepatitis C Screening 2009 Hepatitis B Vaccines (1 of 3 - 19+ 3-dose series) 2010 COVID-19 Vaccine (3 - 2023- season) 2024 09/11/2021, 08/14/2021 Influenza Vaccine (#1) 2024 3, 10/30/2021, 10/06/2020, Additional history exists DTaP,Tdap,and Td Vaccines (3 - Td or Tdap) 10/06/2030 10/06/2020, 05/07/2010 Zoster Vaccines (1 of 2) 2041 Meningococcal Vaccine Completed 05/07/2010 MMR Vaccines Completed 05/13/2010 Hepatitis A Vaccines Aged Out 01/31/2011 No long er eligible based on patient's age to complete this topic HPV Vaccines Aged Out No longer eligi ble based on patient's age to complete this topic Pneumococcal Vaccine: Pediatrics (0 to 5 Years) and At-Risk Patients (6 to 64 Years) Aged Out No longer eligible based on patient's age to complete this topic Insurance PRIME REF REQ Care Teams Supplies Packer Relationship Specialty Start Date End Date Allen Jarvis [facility] [place] [place] [address] PCP - General Primary Care 07/20/24
--- OUTSIDE RECORDS SUMMARY | 2025-01-31 19:24 | XMS_ITS | Encounter Summary ---
Author Organization [facility] Address [address] [place] [address] Care Team Providers Care Sandblaster Glass Name Role Phone Unavailable Primary Care Provider Unavailabl e Prior Encounters Date Type Department Care Team Description 12/17/2019 Converted 13x Documents [facility] [address] [place] [address] <No scans attached> Plan of Treatment Not on file Visit Diagnoses Not on file
== END 2025-01-31 17:42 | disposition home or self-care (01) ==
PROVIDERS: PCP Nurse Practitioner Family; Visit Provider Nurse Practitioner Family
DX: Z00.00 Encounter for general adult medical examination without abnormal findings (principal); Z80.0 Family history of malignant neoplasm of digestive organs; K92.1 Melena

== ENCOUNTER → 2025-01-31 16:08 | Outpatient (BNVA) | payer OTHER, SELFPAY | PROVIDERS: PCP Nurse Practitioner Family; Visit Provider Nurse Practitioner Family | DX: Z00.00 Encounter for general adult medical examination without abnormal findings (principal); K92.1 Melena; Z80.0 Family history of malignant neoplasm of digestive organs | CPT/HCPCS: 96127 ==

== ENCOUNTER 2025-02-19 14:17 | Outpatient (AMB) | payer OTHER, SELFPAY ==
[2025-02-19 15:01] VITALS: BP 110/58; PULSE 74; RESP 16; TEMP 36.7; O2SAT 98; BMI 27.6
--- NOTE | 2025-02-19 15:01 | AM.OFFWIN_ITS ---
Intake Vital Signs 02/19/25 15:01 Height 6 ft 2 in Weight 215 lb BMI 27.6 BP 110/58 L Blood Pressure Location Lt brachial Position Sitting Respiration 16 Pulse 74 Pulse Source Pulse Oximeter Temp 98.0 F Temp Source Oral Pulse Oximetry (%) 98 Oxygen Delivery Method Room Air Intake Visit Reasons: EP Bilat eye irritation Intake Note: Pt is here today c/o bilareral eye irritation since last night Patient Tobacco Use Status: Never used Tobacco Allergies No Known Allergies Allergy (Verified 02/19/25 15:05) HPI HPI Comments History of Present Illness Details This is a 34-year-old male with no stated past medical history presenting for evaluation of irritation in his eyes bilaterally which woke him up at 2:00 a.m. today. Patient states that he has no eye pain but has an itchy sensation at redness in his eyes right worse than left. Patient does not wear any contacts or glasses and denies a foreign body in his eyes bilaterally. PFS Medical History Tinea versicolor Microscopic hematuria Panic attacks Anxiety Surgical History History of wisdom tooth extraction Social History Housing: House Patient Tobacco Use Status: Never used Tobacco e-Cigarette/Vaping Use: Former Use Second Hand Smoke Exposure: No service: Yes Current occupational status: employed Current occupation: [employer] Current occupational exposures/hazards: No Cognitive needs: No Hearing needs: No Vision needs: No Review of Systems Const All systems reviewed & are unremarkable except as noted in HPI and below Eyes Reports no additional complaints, Denies blind spots, Denies blurry vision, Denies exophthalmos, Denies change in vision, Denies decreased night vision, D enies dry eyes, Reports irritation, Reports itchy eyes, Denies loss of peripheral vision, Denies requires corrective lenses, Denies seeing flashes and Denies photophobia ENT Reports no additional complaints Card Reports no additional complaints Resp Reports no additional complaints GI Reports no additional complaints Reports no additional complaints Musc Reports no additional complaints Skin/Breast Reports system reviewed and no additional complaints, except as documented Neuro Reports no additional complaints Psych Reports no additional complaints Endo Reports no additional complaints Dimitri/Lymph Reports no additional complaints Aller/Immun Reports no additional complaints and Reports itchy eyes Physical Exam Vital Signs: Last Vital Signs Temp 98.0 F 02/19/25 15:01 Pulse 74 02/19/25 15:01 Resp 16 02/19/25 15:01 BP 110/58 L 02/19/25 15:01 Pulse Ox 98 02/19/25 15:01 Oxygen Delivery Method Room Air 02/19/25 15:01 BMI result Body Mass Index 27.6 Const General: cooperative, healthy appearing, comfortable, no acute distress, well developed, alert, awake and Physically active; No acute distress Nutritional Appearance: average body habitus Orientation/consciousness: patient oriented x3 Limitations: no limitations Eyes Visual Jaimes: normal visual jaimes by confrontation Alignment and Position: alignment normal Periorbital: periorbital findings normal Eyelids: Yes eyelids normal Conjunctivae: conjunctival abnormal bilateral conjunctival injection diffuse; without discharge and without subconjunctival hemorrhages Pupils: Equal, round and reactive pupils present EOM: EOMs intact bilaterally Direct Ophthalmoscopy: normal light reflex, no photophobia and No photophobia Neuro General: patient oriented x3 Cranial nerves: Yes Equal, round and reactive pupils present Psych Appearance: grossly normal Mental Status: mental status grossly normal Insight: Good insight present (Psych) Judgement: Good judgement present (Psych) Assessment & Plan Assessment & Plan (1) Conjunctivitis: Comment: Patient's history coupled with his examination is consistent with a bacterial conjunctivitis. Patient will be discharged with erythromycin ointment. Code(s): H10.9 - Unspecified conjunctivitis Qualifiers: Conjunctivitis type: acute Acute conjunctivitis type: unspecified Laterality: bilateral Qualified Code(s): H10.33 - Unspecified acute conjunctivitis, bilateral Plan: Erythromycin ointment, 1 cm q.i.d. to eyes bilaterally x7 days. Personal hygiene including the importance of handwashing is reviewed with the patient. Medications: New erythromycin 1 cm ophthalmic (eye) QID 3.5 grams 1RF Coding Level of Care Code Est Pt Level 3 (34846) Diagnoses Acute conjunctivitis of both eyes, unspecified acute conjunctivitis type H10.33 Conjunctivitis type: acute Acute conjunctivitis type: unspecified Laterality: bilateral Time Spent (min) 20
--- OUTSIDE RECORDS SUMMARY | 2025-02-19 17:51 | XMS_ITS | Clinical Summary ---
Author Organization [facility] Address [address] [place] [address] Care Team Providers Care Electric Detector Operator Name Role Phone Unavailable Primary Care Provider [...]
--- OUTSIDE RECORDS SUMMARY | 2025-02-19 17:51 | XMS_ITS | Clinical Summary ---
Author Organization [facility] Address [address] [place] [address] Care Team Providers Care Clinical Laboratory Director Name Role Phone Allen Jarvis Primary Care Provider [phone] Allergies No known active allergies Medications meloxicam [...] 5 Years) and At-Risk Patients (6 to 49 Years) Aged Out No longer eligible based on patient's age to complete this topic Insurance PRIME REF REQ Care Teams Clinical Laboratory Director Relationship Specialty Start Date End Date Allen Jarvis [facility] [place] [address] PCP - General Primary Care 07/20/24
--- OUTSIDE RECORDS SUMMARY | 2025-02-19 17:51 | XMS_ITS | Data Portability ---
Author Organization [place] - [employer], [employer] Address [address] [place] [address] Assessment No assessment recorded. Plan of Treatment Reminders Order Date Submit Date Provider Last Modified By Organization Details Last Modified Time Details Appointments None recorded. Lab None recorded. Referral orthopedic referral 2016 017 [email or web address] Danyel Pé[place], [address] [facility], [address], [place], [address], 8 16:28:10 Procedures None recorded. Surgeries None recorded. Imaging None recorded. Medication Orders None recorded. Patient TargetsNo targets recorded. Patient InstructionsNo instructions recorded. Reason for Referral Orthopedic Referral for Frac ture of clavicle Referring Physician: Ameya Mendiola, Urgent Care, Encounter Date: 11/11/2017 Results Created Date Observation Date Name Description Value Unit Range Abnormal Flag Note LastModifiedBy Organization Detail LastModifiedTime 11/11/20 17 11/10/2017 XR, shoul esperanza, 2 or more view No observ ation record ed. [email or web address] Not Available 11/14 16:33:59 Result Notes None recorded. Procedures Surgical History None recorded. Imaging Results Imaging Date Name Status LastModified by Organiz ation Details LastModified Time 11/10/2017 XR, shoulder, 2 or more view completed [email or web address] Information not available 11/14/2017 16:33:59 Procedure Notes None recorded. Medical Equipment None Reported. Allergies No known drug allergies Medications Name Sig Start Date Stop Date Status Note LastModified by Organization Details LastModified Time promethazin e-DM 6.25 mg-15 mg/5 mL oral syrup 11/11 completed Not Available Not Available Not Available ibuprofen 600 mg tablet 11/11 completed Not Available Not Available Not Available Mcrae 5 mg-325 mg tablet Take 1 tablet every 6 hours by oral route. active Not Available Not Available No t Available Vitals Date Recorded Heart rate Oxygen saturation Oxygen saturation in Arterial blood by Pulse oximetry Body temperature Body weight Body height Body mass index (BMI) Systolic blood pressure Diastolic blood pressure Provider Name and Address Organization Details Last Updated DateTime 7 76 /min 98 % 98 % 98.8 [degF] 52776.1 4 g 187.96 cm 24.5 kg/m2 141 mm[Hg] 80 mm[Hg] [place] [address] [facility], [address], [place], [address], [employer] 7 13:55:11 Social History Question Answer Notes LastModified by Organizat ion Details LastModified Time Tobacco Smoking [place] [address] [facility], [address], [place], [address], [employer] 11/11/2017 13:56:23 What Was The Date Of Your Most Recent Tobacco Screening? 11/11/2017 Information n ot available 06/21/2019 Sex: Unknown Functional Status None recorded. Mental Status None recorded. Family History Nothing Reported. Medical History Condition Response Anxiety Disorder N Diabetes N Muscle, Joint, or Bone Problems N High Blood Pressure N Vision or Eye Problems N Seizures/Epilepsy N Blood Diseases N Hyperthyroidism N Cancer N ADD or ADHD N Thyroid Problems N Kidney or Bladder Problems N GI Problems N Lung Disease N Asthma N COPD N Defects or Inherited Disease N Skin Problems N Anemia N Bladder or Kidney Problems N High Cholesterol N Liver Disease N Heart Disease N Past Encounters Encounter ID Performer Location Encounter Start Date Encounter Closed Date Diagnosis/Indication Diagnosis SNOMED-CT Code Diagnosis ICD10 Code Diagnosis Note [id number] Josiane Michelle MD [employer] [address] [facility] [place] [address] 11/11/2017 13:29:20 11/11/2017 15:09:51 Fracture of clavicle [id number] S42.001A 2 more weeks off work.[employer] orth[facility] referral for distal third clavicular fracture slightly displaced. Do not use right arm.Cont with norco prn pain. Health Concerns Section Related Observation LastModified by Organization Detai ls LastModified Time None Recorded Concern Status LastModified by Organization Details LastModified Time None Recorded Advance Directives Directive None Recorded Payers Encounter Date Sequence Insurance Name Policy Number Policy Rojas Covered Member ID Rojas Member ID Guarantor Name 11/11/2017 1 [facility] [employer] [id number] [employer] Notes Date Note Type Note Provider Name and Address Organization Details Recorded Time 11/11/2017 text/html right clavicle fx yesterday from snow boarding injury yesterday. seen at [facility]. here today for notes for work and second opinion GEM Mendoza - [employer] [facility]. 11/11/2017 17:13:01
--- OUTSIDE RECORDS SUMMARY | 2025-02-19 17:51 | XMS_ITS | Encounter Summary ---
Author Organization [facility] Address [address] [place] [address] Care Team Providers Care Lead Java Programmer Name Role Phone Unavailable Primary Care Provider Unavailabl e Prior Encounters Date Type Department Care Team Description 12/17/2019 Converted 13x Documents [facility] [address] [place] [address] <No scans attached> Plan of Treatment Not on file Visit Diagnoses Not on file
--- OUTSIDE RECORDS SUMMARY | 2025-02-19 17:51 | XMS_ITS | Continuity of Care Document ---
Author Name [facility] Organization [facility] Care Team Providers Care Career Law Clerk Name Role Phone [facility] Unavailable Unavailable Immunizations Combined list of available immunizations from the Department of Defense and Veterans Affairs facilities. Immunization Series Date Given Administered By Site Reaction Lot Number CVX Code Drug Tree Care Foreman Status Comments Source influenza virus vaccine, inactivated 2020 [id number] Seqirus complet ed influenza virus vaccine, inactivat ed 10/30/21 Given Ambulat ory Pharmac y COVID Vaccine Pfizer 2020 [id number] PFIZER complet ed COVID Vaccine Pfizer 09/11/21 Given Ambulat ory Pharmac y COVID Vaccine Pfizer 2020 [id number] PFIZER complet ed COVID Vaccine Pfizer 08/14/21 Given Ambulat ory Pharmac y influenza, injectable, quadrivalent- pf 2019 [id number] 150 Seqirus complet ed influenza , injectabl e, quadrival ent-pf 10/06/20 Given Ambulat ory Pharmac y tetanus, diphtheria, acellular pertu is 2019 [id number] sanofi pasteur complet ed tetanus, diphtheri a, acellular pertussis 10/06/20 Given Ambulat ory Pharmac y Influenza, inj, MDCK, quadrivalent- pf 2018 171 complet ed Influenza , inj, MDCK, quadrival ent-pf 09/13/19 Given Ambulat ory Pharmac y Influenza, inj, MDCK, quadrivalent- pf 2017 171 complet ed Influenza , inj, MDCK, quadrival ent-pf 08/29/18 Given Ambulat ory Pharmac y influenza, seasonal, injectable 2017 [id number] 141 Seqirus complet ed influenza , seasonal, injectabl e 08/29/18 Given Ambulat ory Pharmac y influenza virus vaccine, inactivated 2016 [id number] 88 Seqirus complet ed influenza virus vaccine, inactivat ed 10/15/17 Given Ambulat ory Pharmac y influenza, seasonal, injectable-pf 2015 [id number] 140 Seqirus complet ed influenza , seasonal, injectabl e-pf 08/28/16 Given Ambulat ory Pharmac y influenza, seasonal, injectable 2014 [id number] 141 CSL Behring complet ed influenza , seasonal, injectabl e 09/29/15 Given Ambulat ory Pharmac y influenza, seasonal, injectable 2014 [id number] 141 CSL Behring complet ed influenza , seasonal, injectabl e 11/29/14 Given Ambulat ory Pharmac y influenza, seasonal, injectable 2013 [id number] 141 CSL Behring complet ed influenza , [...] Pharmac y influenza virus vaccine, live 2010 [id number] 111 [employer] comple t ed influenza virus vaccine, live 10/16/11 Given Ambulat ory Pharmac y hepatitis A adult vaccine 2010 [id number] 52 GlaxoSmithKli ne complet ed hepatitis A adult vaccine 01/31/11 Given Ambulat ory Pharmac y influenza virus vaccine,split 2009 [id number] 15 CSL Behring complet ed influenza virus vaccine,s plit 10/17/10 Given Ambulat ory Pharmac y measles/mumps /rubella virus vaccine 2009 [id number] 03 Merck [employer] Inc complet ed measles/m umps/rube lla virus vaccine 05/13/10 Given Ambulat ory Pharmac y Hep A, pediatric, unspecified formul 2009 [id number] 1AA 31 GlaxoSmithKli ne complet ed Hep A, pediatric , unspecifi ed formul 05/13/10 Given Ambulat ory Pharmac y tuberculin purified protein derivative 2009 [id number] 96 sanofi pasteur complet ed tuberculi n purified protein derivativ e 05/10/10 Given Ambulat ory Pharmac y poliovirus vaccine, inactivated 2009 [id number] 10 sanofi pasteur complet ed polioviru s vaccine, inactivat ed 05/07/10 Given Ambulat ory Pharmac y Novel influenza-H1N 1-09,pf,injec table 2009 [id number] 1A 126 CSL Behring complet ed Novel influenza -D4K9-06, pf,inject able 05/07/10 Given Ambulat ory Pharmac y tetanus, diphtheria, acellular pertu is 2009 [id number] 1CA 115 [employer] ne complet ed tetanus, diphtheri a, acellular pertussis 05/07/10 Given Ambulat ory Pharmac y influenza virus vaccine,split 2009 [id number] 1A 15 CSL Behring complet ed influenza virus vaccine,s plit 05/07/10 Given Ambulat ory Pharmac y meningococcal A,C,Y,W-135 (MCV4P) 2009 [id number] 114 sanofi pasteur complet ed meningoco ccal A,C,Y,W-1 35 (MCV4P) 05/07/10 Given Ambulat ory Pharmac y Results Combined list of recent chemistry, hematology and other laboratory results from Department of Defense and Veterans Affairs, ranging from 15 months [...] Prevention' s HIV diagnostic algorithm. Refer to [facility] Lab Guide for additional information : [email or web address] x Testing performed by Kendra alicia [facility] Miscellan eous Sendouts Repository Sample Received (01/10/25 9:08 AM) 01/10 N [facility] Encounters Combined list of: 1) Encounters from Department of Veterans Affairs facilities going backup to the last 18 months, not all [place] inpatient encounters are included; 2) Encounters from the Department of [facility] Pauer - 3P facilities going backup to 280 months. Location Location Details Encounter Type Encounter Number Reason For Visit Attending Provider ADM Date DC Date Status Disposition Source 8344R-439 AMDS Between Visit [id number] 10/29 Discharge Disposition: Home or Self Care 8344R-4 39 AMDS 8344R-439 AMDS Between Visit [id number] 11/26 Discharge Disposition: Home or Self Care 8344R-4 39 AMDS 8344R-439 AMDS Between Visit [id number] 12/25 Discharge Disposition: Home or Self Care 8344R-4 39 AMDS 8344R-439 AMDS Outpatient [id number] BASHIR FERNÁNDEZ 01/18 Discharge Disposition: Home or Self Care 8344R-4 39 AMDS 8344R-439 AMDS Between Visit [id number] 02/18 Discharge Disposition: Home or Self Care 8344R-4 39 AMDS Procedures Combined list of: 1) Procedures from Department of Veterans Affairs facilities going back up to thelast 18 months, not all [place] non-surgical procedures are included; 2) All procedures from the Department of Defense facilities. Procedure Procedure Type Code Date Perfomer Comments Sourc e No data available for this section Ambulatory P harmacy Social History Combined list of available smoking, tobacco, and other social history from Department of Defense and Veterans Affairs facilities. Social History Type Response Date Comment [facility] e Sex Representation Male 12/09/2022 Unknow n Organization Sexual Orientation [facility] Gender identity [...] SF 507: _ Comments: Addendum by BASHIR JEROME MD on March 02, 2024 12:08 EDT Chief Complaint: Member here for annual PHA.?No acute complaints.?IMR?green. HEENT:?Normal Joints:?Normal Lungs:?Normal Heart:?Normal Comments: ?ANNUAL PERIODIC HEALTH ASSESSMENT I. INSPECTOR TIMERS INFORMATION AND DEMOGRAPHICS (SMI) 1. Last Name: VIR[place] 2. First Name: JAMES 3. Middle Name: MARIA D 4. Assessment Date: 5. : 6. Age: 33 7. Gender: M 8. DoD ID Number: [id number] 9. Service Branch: [employer] 10. 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 Status: Active [employer] 12. 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 Unit Name: [facility], 1928–1983 [employer] 14. Duty Station/Location: [place] 15. C: [id number] 16. Is this your first Periodic Health Assessment (PHA)?: N 17. Are you enrolled in a secure messaging system with your health care provider?: N 18. Current contact information: Preferred Method: Email 1 DSN: [id number] Day Time Phone: [phone] Night Time Phone: [phone] Email 1: [email or web address] Email 2: [email or web address] Address: [address] [place] [address]: [facility]: [place] Zip Code: [address] 19. Point of contact who can always reach you: Name: Madeleine Alexander Phone 1: [phone] Phone 2: [phone] EMAIL: [email or web address] Address: [address] [place] [address]: [facility]: [place] Zip Code: [address] II. DEPLOYMENT INFORMATION (DEP) 1. [ 0 [...] easily startled? 6. d. [ No ] [place] numb or detached from others, activities, or your surroundings? 6. e. [ Not answered ] [place] guilt or unable to stop blaming yourself [...] like to schedule a visit with a wood milling machine operator, mental health care provider, or a community [...] [ Meloxicam, Tylenol ] What prescriptions or qfsd-niq-fjasjtm medications are you CURRENTLY taking for health [...] had a cholesterol check by a health health care aide within the PAST 5 YEARS? 13.a. In [...] provided: Conditions: Surgery and Physical Therapy Where: [facility], [facility], [facility], [facility] 5. Member acknowledged responsibility for reporting health issues. 7. [ No ] Woud you like to schedule an appointment with a health care provider to discuss any health concerns? XI. SEPARATION AND CARE HOME 1. [ No ] Are you planning to separate or retire within the next year from Active Duty or [employer] Duty (activated for greater than 30 continuous days) OR do you intend to file a claim for disability compensation with the Veterans Benefits Administration? PART B. RECORD REVIEW AND RECOMMENDATIONS I. RECORD REVIEWER INFORMATION 1. Last Name: LILLY 2. First Name: ISAK 3. Middle Name: XAVI 4. Service Branch: [employer] 5. Status: 6. 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 EMAIL: [email or web address] 8. Facility: [facility] 9. Unit: [facility] 10. Address: [address] [place] [address] 11. State: [place] 12. Zip Code: [address] 13. Phone: [phone] 14. Date Record Review: II. MEDICAL SCREENING 1. 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 [ 6 feet 1 inches Date: ] vulcan crewmember's most recently documented height 3. [ 210 pounds Date: ] vulcan crewmember's most recently documented weight 4. [ 132/76 Date: ] vulcan crewmember's most recently documented blood pressure reading 5. [ No ] Does the vulcan crewmember have a history of abnormal blood pressure since their last PHA? 6. [ Yes ] Does the vulcan crewmember have a laboratory test of sickle cell trait documented in their permanent medical record? 7. [ No Cholesterol Test Documented ] What is the date of the vulcan crewmember's most recently documented cholesterol test? 9. [ Meloxicam, Tylenol ] List of vulcan crewmember's active medications listed in their permanent medical record 10. [ No ] Is there a discrepancy between the active medication record review and the vulcan crewmember's self-reported list of medications? 11. [ Surgery and Physical Therapy ] List documented significant care the vulcan crewmember has received since their last PHA from a provider OUTSIDE the Health System 12. [ No ] Is there a discrepancy between the vulcan crewmember's list of OUTSIDE care (from OT5), and the OUTSIDE care found in the record? 13. 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 Is there documentation in the record for each surgery listed below? Left Hip Infringement/Hip Arthroscopic Surgery: Yes 15. [ Not Answered ] Confirm that vaccine exemptions are listed in the medical record for each vaccine listed III. OCCUPATION-SPECIFIC EXAMINATIONS 1. 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 IV. FAMILY HISTORY AND LIFESTYLE 1. [ Yes ] Does the [id number] reflect the vulcan crewmember's reported family history? VII. INDIVIDUAL MEDICAL READINESS 1. [ No ] Does the vulcan crewmember have an Assignment Limitation Code C? 2. 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 [ Classification: 2 ] Most recently documented dental exam 4. [ Yes ] Is the vulcan crewmember current on all required immunizations in the immunization tracking system? 6. Does the vulcan crewmember have the following laboratory tests documented in [...] need to be forwarded to the Health Guest Relations Representative completing PART C: Recent surgery for left hip. Has current restrictions/active AF469. 510 pain. Experienced periods of dizziness post-surgery; has since resolved. Takes multivitamin. Date Record Review Completed: PART C. HEALTH CARE PROVIDER I. MENTAL HEALTH ASSESSMENT (MHA) PROVIDER INFORMATION 1. Last Name: Deedee 2. First Name: Marycruz 3. Middle Name: 4. 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 Title: Other Licensed Mental Health Professional 7. EMAIL: 8. Facility: [facility] Admin Office 9. Unit: N/A 10. [facility] 11. State: [place] 12. Zip Code: [address] 13. 14. Date HCP Review initiated: 1. [...] BASHIR 3. Middle Name: 4. Service Branch: [employer] 5. Status: Reservist 6. Title: Physician (DO KARON) 7. EMAIL: [email or web address] 8. Facility: [facility] 9. Unit: [facility] 10. Address: [address] [place] [address] 11. State: [place] 12. Zip Code: [address] 13. Phone: [phone] 14. Date HCP Review initiated: IV. PERIODIC HEALTH ASSESSMENT PROVIDER RECOMMENDATIONS and REFERRALS 1. Provider concerns with this assessment: No issues or concerns identified V. SUMMARY AND COMMENTS 1. Additional information summarizing findings during the vulcan crewmember assessment: 2. Provider Comments: Member recovering from hip surgery, doing well. Follow up in 2 weeks. . INDIVIDUAL MEDICAL READINESS DISPOSITION DETERMINATION CHRISTIE: Not Ready DEN: Ready IMM: Ready LAB: Ready ME: Ready IMR Status: Partially Medically Ready VII. SERVICE MEDICAL DEPLOYABILITY EVALUATION INDICATED Based on your review of all documentation, is the vulcan crewmember medically deployable without limitations? Reference [facility] 6490.07 No (vulcan crewmember currently has a medical condition that DOES require duty limitation(s) AND limits deployability) Date PHA Completed: END OF [id number] REPORT Impression:Meets?medical standards per LASHON 48-123/MSD. Disposition:?No AF469 changes based on this encounter.[employer] Qualified.Current AF469 for post hip surgery. 02/19/2025 8344R-439 AMDS Functional Status Combined list of recent functional and cognitive assessments recorded at Department of Defense and Veterans Affairs (VA).VA Functional Rabun Measurement (FIM) Scale: 1 = Total Assistance (Subject = 0% +), 2 = Maximal Assistance (Subject = 25% +), 3 = Moderate Assistance (Subject = 50% +), 4 = Minimal Assistance (Subject = 75% +), 5 = Supervision, 6 = Modified Rabun (Device), 7 = Complete Rabun (Timely, Safely). Assessment Date/Time Source Assessment Type Assessment Skill Assessment Score Assessment Details No data available for this section
== END 2025-02-19 15:37 | disposition home or self-care (01) ==
PROVIDERS: PCP Nurse Practitioner Family; Visit Provider Physician Assistant
DX: H10.33 Unspecified acute conjunctivitis, bilateral (principal)

== ENCOUNTER → 2025-02-19 14:17 | Outpatient (BNVA) | payer OTHER, SELFPAY | PROVIDERS: PCP Nurse Practitioner Family; Visit Provider Physician Assistant | DX: H10.33 Unspecified acute conjunctivitis, bilateral (principal) | CPT/HCPCS: 99212 ==

== ENCOUNTER 2025-07-15 06:38 | Outpatient (AMB) | payer OTHER, SELFPAY ==
--- OUTSIDE RECORDS SUMMARY | 2025-07-15 06:41 | XMS_ITS | Continuity of Care Document ---
Author Name [employer] Organization [employer] Care Team Providers Care Associate Brand Manager Name Role Phone [employer] Unavailable Unavailable Immunizations Combined list of available immunizations from the Department of Defense and Veterans Affairs facilities. Immunization Series Date Given Administered By Site Reaction Lot Number CVX Code Drug Hem Inspector Status Comments Source influenza virus vaccine, inactivated 2020 [id number] Seqirus complet ed influenza virus vaccine, inactivat ed 10/30/21 Given Ambulat ory Pharmac y COVID Vaccine Pfizer 2020 [id number] PFIZER complet ed COVID Vaccine Pfizer 09/11/21 Given Ambulat ory Pharmac y COVID Vaccine Pfizer 2020 [id number] PFIZER complet ed COVID Vaccine Pfizer 08/14/21 Given Ambulat ory Pharmac y influenza, injectable, quadrivalent- pf 2019 [id number] 150 Seqirus complet ed influenza , injectabl e, quadrival ent-pf 10/06/20 Given Ambulat ory Pharmac y tetanus, diphtheria, acellular pertu is 2019 [id number] 115 sanofi pasteur complet ed tetanus, diphtheri a, acellular pertussis 10/06/20 Given Ambulat ory Pharmac y Influenza, inj, MDCK, quadrivalent- pf 2018 171 complet ed Influenza , inj, MDCK, quadrival ent-pf 09/13/19 Given Ambulat ory Pharmac y Influenza, inj, MDCK, quadrivalent- pf 2017 171 complet ed Influenza , inj, MDCK, quadrival ent-pf 08/29/18 Given Ambulat ory Pharmac y influenza, seasonal, injectable 2017 [id number] Seqirus complet ed influenza , seasonal, injectabl e 08/29/18 Given Ambulat ory Pharmac y influenza virus vaccine, inactivated 2016 [id number] 88 Seqirus complet ed influenza virus vaccine, inactivat ed 10/15/17 Given Ambulat ory Pharmac y influenza, seasonal, injectable-pf 2015 [id number] 140 Seqirus complet ed influenza , seasonal, injectabl e-pf 08/28/16 Given Ambulat ory Pharmac y influenza, seasonal, injectable 2014 [id number] 141 CSL Behring complet ed influenza , seasonal, injectabl e 09/29/15 Given Ambulat ory Pharmac y Influenza, seasonal, injectable, preservative free 2014 WOOD, () Not Given Influenza , seasonal, injectabl e, preservat elda free DoD influenza, seasonal, injectable 2014 [id number] 141 CSL Behring complet ed influenza , seasonal, injectabl e 11/29/14 Given Ambulat ory Pharmac y influenza, seasonal, injectable 2013 [id number] 141 CSL Behring complet ed influenza , [...] Pharmac y influenza virus vaccine, live 2010 [id number] 111 [employer] comple t ed influenza virus vaccine, live 10/16/11 Given Ambulat ory Pharmac y hepatitis A adult vaccine 2010 [id number] 52 GlaxoSmithKli ne complet ed hepatitis A adult vaccine 01/31/11 Given Ambulat ory Pharmac y influenza virus vaccine,split 2009 [id number] 15 CSL Behring complet ed influenza virus vaccine,s plit 10/17/10 Given Ambulat ory Pharmac y measles/mumps /rubella virus vaccine 2009 [id number] 03 Merck & Company Inc complet ed measles/m umps/rube lla virus vaccine 05/13/10 Given Ambulat ory Pharmac y Hep A, pediatric, unspecified formul 2009 [id number] 1AA 31 GlaxoSmithKli ne complet ed Hep A, pediatric , unspecifi ed formul 05/13/10 Given Ambulat ory Pharmac y tuberculin purified protein derivative 2009 [id number] 96 sanofi pasteur complet ed tuberculi n purified protein derivativ e 05/10/10 Given Ambulat ory Pharmac y poliovirus vaccine, inactivated 2009 [id number] 10 sanofi pasteur complet ed polioviru s vaccine, inactivat ed 05/07/10 Given Ambulat ory Pharmac y Novel influenza-H1N 1-09,pf,injec table 2009 [id number] 1A 126 CSL Behring complet ed Novel influenza -V9F0-42, pf,inject able 05/07/10 Given Ambulat ory Pharmac y tetanus, diphtheria, acellular pertu is 2009 [id number] 1CA 115 GlaxoSmithKli ne complet ed tetanus, diphtheri a, acellular pertussis 05/07/10 Given Ambulat ory Pharmac y influenza virus vaccine,split 2009 [id number] 1A 15 CSL Behring complet ed influenza virus vaccine,s plit 05/07/10 Given Ambulat ory Pharmac y meningococcal A,C,Y,W-135 (MCV4P) 2009 [id number] 114 sanofi pasteur complet ed meningoco ccal [...] Prevention' s HIV diagnostic algorithm. Refer to [facility] Lab Guide for additional information : [email or web address] x Testing performed by Kendra alicia 5600A-U [employer] EPILAB Miscellan eous Sendouts Repository Sample Received (01/10/25 9:08 AM) 01/10 N 5600A-U [employer] EPILAB Encounters Combined list of: 1) Encounters from Department of [facility] facilities going backup to the last 18 months, not all [place] inpatient encounters are included; 2) Encounters from the [facility] facilities going backup to 280 months. Location Location Details Encounter Type Encounter Number Reason For Visit Attending Provider ADM Date DC Date Status Disposition Source 8344R-[id number] AMDS Between Visit [id number] 12/25 Discharge Disposition: Home or Self Care 8344R-4 39 AMDS 8344R-439 AMDS Outpatient [id number] BASHIR PRADEEP 01/18 Discharge Disposition: Home or Self Care 8344R-4 39 AMDS 8344R-439 AMDS Between Visit [id number] 02/18 Discharge Disposition: Home or Self Care 8344R-4 39 AMDS 8344R-439 AMDS Care Not Rendered [id number] 03/01 Discharge Disposition: Home or Self Care 8344R-4 39 AMDS 8344R-439 AMDS Between Visit [id number] 03/05 Discharge Disposition: Home or Self Care 8344R-4 39 AMDS Procedures Combined list of: 1) Procedures from Department of Veterans Affairs facilities going back up to thelast 18 months, not all [place] non-surgical procedures are included; 2) All procedures from the [facility] facilities. Procedure Procedure Type Code Date Perfomer Comments Sourc e No data available for this section Ambulato ry Pharmacy THERAPEUTIC, PROPHYLACTIC, OR DIAGNOSTIC INJECTION (SPECIFY SUBSTANCE OR DRUG); SUBCUTANEOUS OR INTRAMUSCULAR 05/13/2010 [facility] Social History Combined list of available smoking, tobacco, and other social history from Department of Defense and Veterans Affairs facilities. Social History Type Response Date Comment Sourc e Sex Representation Male (finding) 12/09/2022 Un known Organization Sexual Orientation Ambula tory Pharmacy Gender identity Ambulator y Pharmacy This section is an empty social history section. DoD Assessment and Plan Combined list of future care activities from Department of Defense and Veterans Affairs facilities (e.g., assessment and plan notes, appointments, orders, and referrals). Additional future care activities may be listed in the Plan of Care section. Result Assessment and Plan Date Source Assessment and Plan Extracted from:Title : AUOF PHA Author: MEHRDAD PATTON Date: 03/01/25 Mbr came in for appt Addendum by BARB GRIFFITHS on March 01, 2025 10:39 EDT V itals: Blood Pressure: 136/92 Heart Rate: 77 Height:74'' Weight: 215lbs Medications: H ydroxyzine 25mg PRN Meloxicam 15mg PRN Tylenol/ibuprofen PRN Gummy sleep aid PRN bio freeze ointment PRN Chronic Problems: Hip SF 507: N/A Comments:NONE Addendum by FALLON STRAUSS V on March 01, 2025 10:57 EDT History of Refractive Surgery- No C ontact Lenses- N/A G as Mask Inserts ordered- No C urrent SRX on file- No DVA (Uncorrected) OD: 20/20 OS: 2 0/20 NVA (Uncorrected) OD: 20/20 OS: 20/20 Peripheral Vision Testing: WNL OU Color Vision Testing: WNL OU Optometry findings meet standards- Yes Addendum by BUD MCCARTHY MD on March 01, 2025 11:19 EDT Chief Complaint: Member here for annual PHA. N o acute complaints. I MR jen cardona. 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 Last Name: CABLEMariposa 2. First Name: JAMES 3. Middle Name: MARIA D 4. Assessment Date: 5. : 6. Age: 34 7. Sex: M 8. DoD ID Number: [id number] 9. Service Branch: [employer] 10. 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 Status: Active [employer] [place] 12. 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 Unit Name: [address] [employer] 14. Duty Station/Location: [place] 15. C: [id number] 16. Is this your first Periodic Health Assessment (PHA)?: N 17. Are you enrolled in a secure messaging system with your health care provider?: N 18. Current contact information: Preferred Method: Email 1 DSN: Day Time Phone: [phone] Night Time Phone: [phone] Email 1: [email or web address] Email 2: Address: [address] [place] [address] City: [facility]: [place] Zip Code: [address] 19. Point of contact who can always reach you: Name: Madeleine Riley Phone 1: [phone] Phone 2: EMAIL: [email or web address] Address: [address] [place] [address] City: [facility]: [place] Zip Code: [address] II. DEPLOYMENT INFORMATION (DEP) 1. [ 0 ] Total number of deployments in the PAST 5 YEARS 4. [ N ] Are you going to deploy within the NEXT 120 DAYS? III. 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 [ No ] Does your specialty require an operational duty physical exam? 4. [ No ] Are you currently enrolled in a medical surveillance/occupational health program?: No IV. MEDICAL CONDITIONS (CHRISTIE): 1. Since your last PHA, have you experienced any of the following health conditions, and if so, what is your status? [ Chest pain ] Conditions with no medical care [ [...] had any surgery since your last PHA?: No 10.a. [ Yes ] Since your last PHA, has a health care provider recommended surgery(s) that you have not had? 10.b. [ Left Hip, arthroplasty ] For what condition(s) was surgery recommended? 11.a. [ No ] Do you currently require hearing aids, special medical supplies, CPAP, adaptive equipment, assistive technology devices, and/or other special accommodations? 12.a. [ Yes ] Do you have a waiver or profile for any part of your Service's physical fitness test? 12.b. [ Body Composition AnalysisCardio Event, Crunches/Sit-Ups, Push-Ups ] Which component(s) of your physical fitness test are waived/profiled? 13.a. [ Yes ] Do you have any problems wearing a gas mask, ballistic helmet, body armor, and/or chemical/biological protective garments? 13.b. [ weight restrictions ] Please comment on these problems 14.a. [ No ] Have you ever been told by a health care provider that you SHOULD NOT receive an immunization for medical reasons? 15.a. [ Don't Know ] Do you have a permanent profile or an Assignment Limitation Code C? 16.a. [ Yes ] Are you on a temporary profile or limited duty? 16.b. [ Left Hip, lack of mobility ] Why? 17. [ 7 ] During the PAST 2 years, how [...] abuse or substance abuse? 3. [ Yes Meloxicam, Hydroxyzine, acetaminophen, ibuprofen, sleep aid gummy, biofreeze ointment ] What prescription or over-the counter medications [...] when you are drinking? 5. c. [ Never ] How often do you have six [...] easily startled? 6. d. [ No ] Lester numb or detached from others, activities, or your surroundings? 6. e. [ Not answered ] Lester guilt or unable to stop blaming yourself [...] like to schedule a visit with a transit authority police officer, mental health care provider, or a community [...] 0 ] Day(s) per week 8. [ Tylenol, Ibuprofen, Meloxicam ] What prescriptions or qwxe-bmx-cbenbab medications are you CURRENTLY taking for health problems on a ROUTINE BASIS? 9. Which of the following products have you taken since your last PHA: Multi-Vitamins: Once a week Joint Care Supplements: Once a week 11. Think about the PAST 30 DAYS. How often did you eat/drink the following foods/beverages? [ 1 or 2 servings per week ] Fruits [ 3 to 6 servings per week ] Vegetables [ 3 to 6 servings per week ] Starchy Vegetables [ 3 to 6 servings per week ] Whole Grains [ 1 or 2 servings per week ] Dairy and Calcium Containing Foods [ 3 to 6 servings per week ] Fish [ 1 serving per day ] Lean Protein [ 3 to 6 servings per week ] Sugar-Sweetened Beverages ] Have you had a cholesterol check by a health critical care unit nurse within the PAST 5 YEARS? 13.a. In [...] used to keep from getting ? [ My partner(s) or I intend to get in the next year. ] I am not actively taking steps to prevent as 23. [ No ] In the last year, have you or your partner had a scare, where you were not trying to get but were worried enough to use a home test? X. OTHER MEDICAL (OTH) 1. [ 7 ] Rate the amount of pain you [...] and where the care was provided: Conditions: Left Hip Where: [facility] 5. Member acknowledged responsibility for reporting health issues. 7. [ No ] Woud you like to schedule an appointment with a health care provider to discuss any health concerns? XI. SEPARATION AND SNF 1. [ No ] Are you planning to separate or retire within the next year from Active Duty or [place] Duty (activated for greater than 30 continuous days) OR do you intend to file a claim for disability compensation with the Veterans Benefits Administration? PART B. RECORD REVIEW AND RECOMMENDATIONS I. RECORD REVIEWER INFORMATION 1. Last Name: USJIT 2. First Name: YADIEL 3. Middle Name: Marycruz 4. Service Branch: [employer] 5. Status: Active [employer] [place] or Full-Time Support 6. 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 EMAIL: [email or web address] 8. Facility: [facility] 9. Unit: [facility] 10. Address: [address] [place] [address] 11. State: [place] 12. Zip Code: [address] 13. 14. Date Record Review: II. MEDICAL SCREENING 1. [ ] Date of bridge crew member's most recent PHA 2. [ 6 feet 1 inches Date: ] bridge crew member's most recently documented height 3. [ 210 pounds Date: ] bridge crew member's most recently documented weight 4. [ 129/81 Date: ] bridge crew member's most recently documented blood pressure reading 5. [ No ] Does the bridge crew member have a history of abnormal blood pressure since their last PHA? 6. [ Yes ] Does the bridge crew member have a laboratory test of sickle cell trait documented in their permanent medical record? 7. [ No Cholesterol Test Documented ] What is the date of the bridge crew member's most recently documented cholesterol test? 9. [ Hydroxyzine 25mg PRN Meloxicam 15mg PRN Tylenol/ibuprofen Gummy sleep aid bio freeze ointment Benzonatate PRN ] List of bridge crew member's active medications listed in their permanent medical record 10. [ No ] Is there a discrepancy between the active medication record review and the bridge crew member's self-reported list of medications? 11. [ Seen for L hip, lumbar spine region, URI ] List documented significant care the bridge crew member has received since their last PHA from a provider OUTSIDE the Health System 12. [ Yes: Seen for L hip, lumbar spine region, URI ] Is there a discrepancy between the bridge crew member's list of OUTSIDE care (from OTH5), and the OUTSIDE care found in the record? 13. [ No Inside Care Documented ] List documented significant care the bridge crew member has received since their last PHA from a provider INSIDE the Health System 15. [ Not Answered ] Confirm that vaccine exemptions are listed in the medical record for each vaccine listed IV. FAMILY HISTORY AND LIFESTYLE 1. [ Yes ] Does the FR9015 reflect the bridge crew member's reported family history? VII. INDIVIDUAL MEDICAL READINESS 1. [ No ] Does the bridge crew member have an Assignment Limitation Code C? 2. [ 1 Expires: ] Number of months in the past year the bridge crew member has been in temporary duty status 3. [ Classification: 1 ] Most recently documented dental exam 4. [ Yes ] Is the bridge crew member current on all required immunizations in the immunization tracking system? 6. Does the bridge crew member have the following laboratory tests [...] need to be forwarded to the Health Textile Scrap Salvager completing PART C: Profile for pain in L hip Reported chest pain did not get tx Medications: Meloxicam, Hydroxyzine, acetaminophen, ibuprofen, sleep aid gummy, biofreeze ointment Surgery recommended since last PHA L hip arthroplasty Alcohol consumption 2-4x month; 3-4 drinks. Tobacco use: quit 2019 Reported no exercise activity Supplements: multi vit, joint care Pain scale 7/10 No significant findings in JLV Date Record Review Completed: PART C. HEALTH CARE PROVIDER I. MENTAL HEALTH ASSESSMENT (MHA) PROVIDER INFORMATION 1. Last Name: Josemanuel 2. First Name: Namita 3. Middle Name: 4. 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 Title: Other Licensed Mental Health Professional 7. EMAIL: [email or web address] 8. Facility: [facility] Admin Office 9. Unit: N/A 10. Address: [facility] 11. State: [place] 12. Zip Code: [address] 13. 14. Date HCP Review initiated: 1. Member marked that they did not have a concern or a difficulty with a major life stressor. 2. Address concerns identified on member questions 2 and 3. History of mental health care: N/A Member's response: Provider's comments: Medications: Member indicated concern or yes Member's response: Meloxicam, Hydroxyzine, acetaminophen, ibuprofen, sleep aid gummy, biofreeze ointment Meloxicam, Hydroxyzine, acetaminophen, ibuprofen, sleep aid gummy, biofreeze ointment Provider's comments: N/A 3. Member's AUDIT-C screening score was 3. (nothing required) 4. Member did not lisa [...] 6. g. Further risk assessment comments: SM DENIED SI OR HI 7. Member states that they have not had thoughts or concerns over the past month that they might hurt or lose control with someone. 9. Summary of Provider's identified concerns needing referrals: None 11. Comments: 13. Supplemental services recommended/information provided: No supplemental services required Date MHA Certified: III. PERIODIC HEALTH ASSESSMENT (PHA) PROVIDER INFORMATION 1. Last Name: SHARI 2. First Name: BUD 3. Middle Name: YULI 4. Service Branch: [employer] 5. Status: Reservist 6. Title: Physician (DO KARON) 7. EMAIL: [email or web address] 8. Facility: [facility] 9. [facility] 10. Address: [address] [place] [address] 11. State: [place] 12. Zip Code: [address] 13. Phone: [phone] 14. Date HCP Review initiated: IV. PERIODIC HEALTH ASSESSMENT PROVIDER RECOMMENDATIONS and REFERRALS 1. Provider concerns with this assessment: No issues or concerns identified V. SUMMARY AND COMMENTS 1. Additional information summarizing findings during the bridge crew member assessment: 2. Provider Comments: No issues or concerns identified. Chest pain was clicked in error by the member while doing PHAQ . INDIVIDUAL MEDICAL READINESS DISPOSITION DETERMINATION CHRISTIE: Not Ready DEN: Ready IMM: Ready LAB: Ready ME: Ready IMR Status: Fully Medically Ready VII. 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 Reference Aravind 6490.07 Yes (bridge crew member DOES NOT currently have a medical condition that limits deployability) Date PHA Completed: END OF GP8487 REPORT Impression:Meets m edical standards per LASHON 48-123/MSD. Disposition: N o AF469 changes based on this encounter.[employer] Qualified. Extracted from:Title: AUOF PHA / MHA Author: YADIEL BECKETT Date: 03/02/24 mbr came in for appt Addendum by ESPERANZA ARDON on March 02, 2024 10:34 EDT Optometry: Color Vision: NORMAL/PASS Confrontational Clarke:NORMAL/PASS Visual Acuities: DVA: UNCORRECTED OD:20/20 OS: 20/20 NVA: UNCORRECTED OD:20/20 OS:20/20 MEETS STANDARDS: YES Addendum by MARIIA MORGAN on March 02, 2024 10:50 EDT V itals: Blood Pressure: 1 29/81 Heart Rate:68 Height:74 Weight:210 BMI: Medications: H ydroxyzine 25mg PRN Meloxicam 15mg PRN Benzonatate PRN Gabapentin 300mg (DS) Chronic Problems: A nxiety 507: _ Comments: Addendum by BASHIR BAL MD on March 02, 2024 12:08 EDT Chief Complaint: Member here for annual PHA. N o acute complaints. I MR jen cardona. 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 Last Name: [place] 2. First Name: JAMES 3. Middle Name: MARIA D 4. Assessment Date: 5. : 6. Age: 33 7. Gender: M 8. DoD ID Number: [id number] 9. Service Branch: [employer] 10. 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 Status: Active [employer] [place] 12. 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 Unit Name: [facility] 14. Duty Station/Location: [place] 15. UIC: [id number] 16. Is this your first Periodic Health Assessment (PHA)?: N 17. Are you enrolled in a secure messaging system with your health care provider?: N 18. Current contact information: Preferred Method: Email 1 DSN: [id number] Day Time Phone: [phone] Night Time Phone: [phone] Email 1: [email or web address] Email 2: [email or web address] Address: [address] [place] [address]: [facility]: [place] Zip Code: [address] 19. Point of contact who can always reach you: Name: Madeleine Alexander Phone 1: [phone] Phone 2: [phone] EMAIL: [email or web address] Address: [address] [place] [address]: [facility]: [place] Zip Code: [address] II. DEPLOYMENT INFORMATION (DEP) 1. [ 0 [...] easily startled? 6. d. [ No ] Lester numb or detached from others, activities, or your surroundings? 6. e. [ Not answered ] Lester guilt or unable to stop blaming yourself [...] like to schedule a visit with a transit authority police officer, mental health care provider, or a community [...] [ Meloxicam, Tylenol ] What prescriptions or sfma-iwv-pnufvee medications are you CURRENTLY taking for health [...] had a cholesterol check by a health critical care unit nurse within the PAST 5 YEARS? 13.a. In [...] provided: Conditions: Surgery and Physical Therapy Where: [facility], [facility], [facility], [facility] 5. Member acknowledged responsibility for reporting health issues. 7. [ No ] Woud you like to schedule an appointment with a health care provider to discuss any health concerns? XI. SEPARATION AND SNF 1. [ No ] Are you planning to separate or retire within the next year from Active Duty or [place] Duty (activated for greater than 30 continuous days) OR do you intend to file a claim for disability compensation with the ooma Benefits Administration? PART B. RECORD REVIEW AND RECOMMENDATIONS I. RECORD REVIEWER INFORMATION 1. Last Name: LILLY 2. First Name: ISAK 3. Middle Name: XAVI 4. Service Branch: [employer] 5. Status: 6. 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 EMAIL: [email or web address] 8. Facility: [facility] 9. Unit: [facility] 10. Address: [address] [place] [address] 11. State: [place] 12. Zip Code: [address] 13. Phone: [phone] 14. Date Record Review: II. MEDICAL SCREENING 1. [ ] Date of bridge crew member's most recent PHA 2. [ 6 feet 1 inches Date: ] bridge crew member's most recently documented height 3. [ 210 pounds Date: ] bridge crew member's most recently documented weight 4. [ 132/76 Date: ] bridge crew member's most recently documented blood pressure reading 5. [ No ] Does the bridge crew member have a history of abnormal blood pressure since their last PHA? 6. [ Yes ] Does the bridge crew member have a laboratory test of sickle cell trait documented in their permanent medical record? 7. [ No Cholesterol Test Documented ] What is the date of the bridge crew member's most recently documented cholesterol test? 9. [ Meloxicam, Tylenol ] List of bridge crew member's active medications listed in their permanent medical record 10. [ No ] Is there a discrepancy between the active medication record review and the bridge crew member's self-reported list of medications? 11. [ Surgery and Physical Therapy ] List documented significant care the bridge crew member has received since their last PHA from a provider OUTSIDE the Health System 12. [ No ] Is there a discrepancy between the bridge crew member's list of OUTSIDE care (from OTH5), and the OUTSIDE care found in the record? 13. [ No Inside Care Documented ] List documented significant care the bridge crew member has received since their last PHA from a provider INSIDE the [facility] 14. Is there documentation in the record for each surgery listed below? Left Hip Infringement/Hip Arthroscopic Surgery: Yes 15. [ Not Answered ] Confirm that vaccine exemptions are listed in the medical record for each vaccine listed III. OCCUPATION-SPECIFIC EXAMINATIONS 1. [ Record Unavailable ] When was the bridge crew member's most recently documented special operational duty physical exam? IV. FAMILY HISTORY AND LIFESTYLE 1. [ Yes ] Does the [id number] reflect the bridge crew member's reported family history? VII. INDIVIDUAL MEDICAL READINESS 1. [ No ] Does the bridge crew member have an Assignment Limitation Code C? 2. 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 [ Classification: 2 ] Most recently documented dental exam 4. [ Yes ] Is the bridge crew member current on all required immunizations in the immunization tracking system? 6. Does the bridge crew member have the following laboratory tests [...] need to be forwarded to the Health Textile Scrap Salvager completing PART C: Recent surgery for left hip. Has current restrictions/active AF469. 5 pain. Experienced periods of dizziness post-surgery; has since resolved. Takes multivitamin. Date Record Review Completed: PART C. HEALTH CARE PROVIDER I. MENTAL HEALTH ASSESSMENT (MHA) PROVIDER INFORMATION 1. Last Name: Deedee 2. First Name: Marycruz 3. Middle Name: 4. 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 Title: Other Licensed Mental Health Professional 7. EMAIL: [email or web address] 8. Facility: [facility] Admin Office 9. Unit: N/A 10. Address: [address] 11. State: [place] 12. Zip Code: [address] 13. 14. Date HCP Review initiated: 1. [...] ASSESSMENT (PHA) PROVIDER INFORMATION 1. Last Name: BAL 2. First Name: BASHIR 3. Middle Name: 4. Service Branch: [employer] 5. Status: Reservist 6. Title: Physician (DO KARON) 7. EMAIL: [email or web address] 8. Facility: [facility] 9. Unit: [facility] 10. Address: [address] [place] [address] 11. State: [place] 12. Zip Code: [address] 13. Phone: [phone] 14. Date HCP Review initiated: IV. PERIODIC HEALTH ASSESSMENT PROVIDER RECOMMENDATIONS and REFERRALS 1. Provider concerns with this assessment: No issues or concerns identified V. SUMMARY AND COMMENTS 1. Additional information summarizing findings during the bridge crew member assessment: 2. Provider Comments: Member recovering from hip surgery, doing well. Follow up in 2 weeks. . INDIVIDUAL MEDICAL READINESS DISPOSITION DETERMINATION CHRISTIE: Not Ready DEN: Ready IMM: Ready LAB: Ready ME: Ready IMR Status: Partially Medically Ready VII. 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 Reference [facility] 6490.07 No (bridge crew member currently has a medical condition that DOES require duty limitation(s) AND limits deployability) Date PHA Completed: END OF [id number] REPORT Impression:Meets m edical standards per LASHON 48-123/MSD. Disposition: N o AF469 changes based on this encounter.[employer] Qualified.Current AF469 for post hip surgery. 07/15/2025 [id number] AMDS Functional Status Combined list of recent functional and cognitive assessments recorded at Department of Defense and Veterans Affairs (VA).VA Functional Ingham Measurement (FIM) Scale: 1 = Total Assistance (Subject = 0% +), 2 = Maximal Assistance (Subject = 25% +), 3 = Moderate Assistance (Subject = 50% +), 4 = Minimal Assistance (Subject = 75% +), 5 = Supervision, 6 = Modified Ingham (Device), 7 = Complete Ingham (Timely, Safely). Assessment Date/Time Source Assessment Type Assessment Skill Assessment Score Assessment Details No data available for this section
--- OUTSIDE RECORDS SUMMARY | 2025-07-15 06:41 | XMS_ITS | Clinical Summary ---
Author Organization Pending sale to [facility] Address [address] [place] [address] Care Team Providers Care Escalator Operator Name Role Phone Allen Jarvis Primary Care Provider [phone] Allergies No known active allergies Medications meloxicam [...] 91 07/20/2024 2:21 PM EDT Temperature 37.6 C (99.7 F) 07/20/2024 2:21 PM EDT Respiratory Rate - - Oxygen Saturation 98% [...] season) 2024 09/11/2021, 08/14/2021 Influenza Vaccine (#1) 2025 3, 10/30/2021, 10/06/2020, Additional history exists DTaP,Tdap,and [...] topic Insurance PRIME REF REQ Care Teams Escalator Operator Relationship Specialty Start Date End Date Allen Jarvis 1960 [place] [address] PCP - General Primary Care 07/20/24
--- OUTSIDE RECORDS SUMMARY | 2025-07-15 06:41 | XMS_ITS ---
Author Name [facility] Organization Unknown Results Test Name/Text Value Interpretation Date Range Source SARS-COV-2 PCR (CEPHEID) Negative Normal 07/20/2024 [facility] Problems Problem Status Onset Date Problem Type Date of Resolution Source Femoroacetabular impingement of left hip active EncounterDiagnosisAct [facility] Lumbar radicular pain active EncounterDiagnosis Act [facility] Pain of left hip active 2024-10-15 ProblemAct C [facility] Encounters Encounter Type Encounter Reason Primary Diagnosis Location Date Ambulatory Pain in left hip Pain in left hip [facility] 10/16/2024 Ambulatory Low back pain, unspecified Low back pain, unspecified [facility] 10/15/2024 Ambulatory Low back pain, unspecified Low back pain, unspecified [facility] 10/15/2024 Ambulatory Pain in left hip Pain in left hip [facility] 10/09/2024 Ambulatory [facility] 10/09/2024 Ambulatory [facility] 10/09/2024 Ambulatory [facility] 10/09/2024 Ambulatory [facility] 10/09/2024 Ambulatory [facility] 10/09/2024 Ambulatory [facility] 10/09/2024 Ambulatory [facility] 10/09/2024 Ambulatory Pain in left hip Pain in left hip [facility] 10/09/2024 Ambulatory [facility] 09/05/2024 Ambulatory Acute pharyngitis, unspecified Acute pharyngitis, unspecified [facility] 07/20/2024 Care Team Organization Name Specialty Phone Email Start Date End Da harry [facility] PRECIOUS GUILLORY Primary Care 024
--- OUTSIDE RECORDS SUMMARY | 2025-07-15 06:41 | XMS_ITS | Clinical Summary ---
Author Organization [facility] Health Address [address] [place] [address] Care Team Providers Care Vice Chair Name Role Phone Unavailable Primary Care Provider [...]
--- NOTE | 2025-07-15 08:14 | MHC.PC.OV ---
Intake Visit Reasons: PPW Allergies No Known Allergies Allergy (Verified 07/15/25 08:15) Medication List - Last Reconciled 07/15/25 by LIANNA Retana erythromycin 1 cm ophthalmic (eye) QID famotidine 40 mg PO DAILY PRN 30 days hydroxyzine HCl 25 mg PO BID PRN 30 days ketoconazole 2% 1 appl topical DAILY 14 days meloxicam 15 mg PO DAILY Tobacco use date assessed: 01/31/25 Dental Screening Dental Screen Date: 01/31/25 HPI PPW HPI Details History of Present Illness The patient is a 34-year-old male presenting with left hip pain. In September 2023, he underwent a left labral hip repair, but has since experienced increased pain in the left hip region. An MRI from 2021 indicated a stress reaction and bone marrow edema in the hip. The patient has been experiencing anterior groin pain, lateral left hip pain, and proximal thigh pain. He has previously engaged in physical therapy, including iliotibial band stretching, but continues to experience discomfort. The patient was regularly seeing an electronic commerce specialist, but due to insurance issues, he is in the process of switching providers. There was a discussion about potentially undergoing an exploratory surgical procedure to further investigate the cause of his persistent discomfort. Currently, his physical activity is restricted, particularly in relation to training, due to the ongoing pain. Review of Systems - Musculoskeletal: Reports left hip pain, anterior groin pain, lateral left hip pain, and proximal thigh pain. Plan The patient is advised to continue with physical restrictions, particularly concerning training, until further evaluation and treatment plans are established. He is in the process of transitioning to a new electronic commerce specialist due to insurance coverage changes, and there is consideration for an exploratory surgical procedure to better understand the underlying issues causing his hip pain. Discussion Notes I discussed with the patient the ongoing issues with his left hip pain and the potential need for an exploratory surgical procedure to further investigate the cause of his discomfort. We also talked about the importance of continuing physical restrictions to prevent exacerbation of his symptoms until a more definitive treatment plan is in place. Patient Instructions - Continue to limit physical activity, especially related to training, until further notice. - Follow up with the new electronic commerce specialist as soon as possible to discuss further evaluation and potential surgical options. [facility] Medical History Tinea versicolor Microscopic hematuria Panic attacks Anxiety Surgical History History of wisdom tooth extraction Social History Housing: House Patient Tobacco Use Status: Never used Tobacco e-Cigarette/Vaping Use: Former Use Second Hand Smoke Exposure: No service: Yes Current occupational status: employed Current occupation: [employer] Current occupational exposures/hazards: No Cognitive needs: No Hearing needs: No Vision needs: No Questionnaire Thrive Questionnaire Date Thrive assessed: 01/31/25 I am a: Patient What is your living situation today?: I have a steady place to live Within the past 12 months, did the food you bought not last and you didn't have the money to get more?: Never true Within the past 12 months, did you worry whether your food would run out before you got money to buy more?: Never true Do you have trouble paying for medicines?: No Do you have trouble getting transportation to medical appointments?: No Do you have trouble paying your heating and electricity bill?: No Do you have trouble taking care of your child, family member or friend?: No Do you have trouble with day-to-day activities such as bathing, preparing meals, shopping, managing finances, etc.?: No Are you currently unemployed and looking for a job?: No Are you interested in more education?: No Please select the resources that you would like help with: None Currently or been in a relationship where the following occur: No concerns reported THRIVE Score: 0 SHAUN-7 AMB Questionnaire SHAUN-7 Date SHAUN - 7 assessed: 01/31/25 Source: Developed by Drs. William Garay, Yeni Kaplan, Rc Carey and colleagues, with an educational karey from [employer] Physical exam (Primary Care) Tobacco/Smoking Status: Tobacco use Status Tobacco use date assessed 01/31/25 05/20/25 14:50 Patient Tobacco Use Status Never used Tobacco 05/20/25 14:50 e-Cigarette/Vaping Use Former Use 05/20/25 14:50 Thrive Assessment: Date of Thrive Assessment Date Thrive assessed 01/31/25 05/20/25 14:50 Currently or been in a relationship where the following occur: No concerns reported Coding Level of Care Code Tele Est Pt Level 3 (93925) Diagnoses Labral tear of hip joint S73.199A Left hip impingement syndrome M25.852 Left hip pain M25.552 Assessment & Plan Assessment & Plan (1) Labral tear of hip joint: Comment: left hip arthroscopic labral repair, femoroplasty 09/2023 Code(s): S73.199A - Other sprain of unspecified hip, initial encounter Category: Medical (2) Left hip impingement syndrome: Comment: bone edema in left neck, stress reaction likely (see mri) Code(s): M25.852 - Other specified joint disorders, left hip Category: Medical (3) Left hip pain: Code(s): M25.552 - Pain in left hip Category: Medical Plan .
== END 2025-07-15 16:44 | disposition home or self-care (01) ==
LOC: HO.HMCC 06:39
PROVIDERS: PCP Nurse Practitioner Family; Visit Provider Nurse Practitioner Family
DX: S73.192A Other sprain of left hip, initial encounter (principal); M25.852 Other specified joint disorders, left hip; M25.552 Pain in left hip

== ENCOUNTER 2025-08-01 09:47 | Outpatient (AMB) | payer OTHER, SELFPAY ==
[2025-08-01 09:54] VITALS: BP 115/70; PULSE 57; BMI 27.3
--- NOTE | 2025-08-01 09:54 | MHC.OFFVIS ---
Vital Signs 08/01/25 09:54 Height 6 ft 2 in Weight 213 lb BMI 27.3 BP 115/70 Blood Pressure Location Lt brachial Position Sitting Pulse 57 Intake Visit Reasons: Family Hx Colon Cancer / Melena Intake Note: Patient new consult for Family Hx Colon Cancer / Melena. Patient cc: abdominal pain, diarrhea and constipation on and off, and bloody stool. Addiction Social Worker Required: No Accompanied by: Self / Same As Patient Allergies No Known Allergies Allergy (Verified 08/01/25 09:53) Medication List - Last Reconciled 08/01/25 by Tatyana Aguirre CNP famotidine 40 mg PO DAILY PRN 30 days hydroxyzine HCl 25 mg PO BID PRN 30 days ketoconazole 2% 1 appl topical DAILY PRN meloxicam 15 mg PO DAILY PRN HPI HPI Family Hx Colon Cancer / Melena: Details: Patient is a 34-year-old male with PMH of anxiety. Referred by PCP for further evaluation of abdominal pain and blood in stool. The patient reports a one-year history of intermittent abdominal pain and bright red blood in the stool. The abdominal pain occurs sporadically, sometimes after meals, in the middle of the night, or before bowel movements, and is described as generalized and not localized. The bleeding is infrequent, occurring in patterns of two to three days in a row and then absent for several weeks. The blood is noted both on wiping and in the stool and is described as bright red. Stool consistency is mostly soft, with occasional solid stools being perceived as a good day. The patient denies any regurgitation, heartburn, nausea, vomiting, or significant appetite changes. Symptoms are aggravated by spicy food consumption. He has been self-managing with as-needed famotidine, reporting variable efficacy. Past musculoskeletal issues include left hip pain following surgery in September 2023, and the patient requires frequent Meloxicam and ibuprofen for pain relief. Also use extra strength Tylenol for pain management. colonoscopy 2021 due to family hx. Patient denies: fever/chills, n/v, appetite changes, pyrosis, regurgitation,dysphasia, unintentional wt loss. Social hx: -weekends, beer, selzter ETOH use -denies recreational drug use -former nictotine -chew,dip, cessation 4 years ago - family hx as below -denies personal hx of CA -denies significant cardiopulmonary history -tolerated anesthesia in the past without difficulty. [facility] Medical History (Updated 08/01/25 @ 11:40 by Tatyana Aguirre CNP) Abdominal pain Tinea versicolor Microscopic hematuria Panic attacks Anxiety Surgical History (Updated 08/01/25 @ 09:58 by Adriana Smith) History of left hip replacement History of wisdom tooth extraction Family History (Updated 08/01/25 @ 10:10 by Adriana Smith) Father Colon polyp Mother Asthma Maternal Grandfather Colon cancer Diabetes Mental health disorder Maternal Grandmother FH: ovarian cancer Diabetes Paternal Grandfather Lung cancer Paternal Grandmother No problems noted. Social History Housing: House Patient Tobacco Use Status: Never used Tobacco e-Cigarette/Vaping Use: Former Use Second Hand Smoke Exposure: No service: Yes Current occupational status: employed Current occupation: [employer] active Current occupational exposures/hazards: No Cognitive needs: No Hearing needs: No Vision needs: No Review of Systems Const Reports as per HPI ENT Reports as per HPI Card Reports as per HPI Resp Reports as per HPI GI Reports as per HPI Reports as per HPI Physical Exam Vital Signs: BMI result Body Mass Index 27.3 Const General: healthy appearing, no acute distress and well developed Nutritional Appearance: average body habitus Orientation/consciousness: patient oriented x3 HEENT Head: Yes normal to inspection, Yes normocephalic and Yes atraumatic Face and sinus: Yes normal facial exam Eyes General: appearance normal, both eyes and all related structures Neck Neck: Yes normal visual inspection Resp Effort & Inspection: normal respiratory effort, able to speak in complete sentences, no tracheal deviation and symmetric chest movement GI Inspection: Yes normal to inspection and No distended Palpation (GI): Soft to palpation, not firm, nontender and No hepatosplenomegaly present Auscultation: normal bowel sounds Rectal Exam - Male: Yes visual inspection normal (limited by pt cooperation), Yes normal sphincter tone, No Internal hemorrhoid(s) present, No fecal impaction, No mass and No tenderness Neuro General: patient oriented x3 Gait exam (Neuro): Normal gait present Psych Appearance: grossly normal Mental Status: mental status grossly normal Speech and movement: Normal speech and movement present Affect: normal affect Attitude: cooperative Thought process: Normal thought process present Thought content: Normal thought content present Insight: Good insight present (Psych) Judgement: Good judgement present (Psych) Results Reviewed Results Reviewed: Operative Note Date of Service: 03/18/22 Narrative: Operative Information Procedure Description: Colonoscopy Indication: FH of CRC and polyps, high risk screening Anesthesia: MAC COLONOSCOPY Instrument: Olympus variable stiffness pediatric scope 190L Colonoscopy Monitoring: Vital signs and clinical assessment, continuous EKG monitoring, Pulse oximetry, Carbon Dioxide monitoring and blood pressure monitoring were done throughout the procedure. Colon withdrawal time was 8 minutes. Procedure: The patient was placed in the left lateral decubitis position and pre-procedure medications were administered. After a digital rectal examination of the ano-rectum, the video colonoscope was inserted into the rectum and advanced through the colon to the cecum/TI. The colonoscope was slowly withdrawn in a retrograde panoramic fashion and the colon mucosa was carefully examined including a retroflexed view of the rectum. Findings and interventions are described below. Procedure Difficulty: easy Findings: Terminal Ileum-normal right sided retroflexion was normal Cecum:normal Ascending Colon: normal Transverse Colon -normal Descending Colon:normal Sigmoid Colon: normal Rectum: Retroflexion with small internal hemorrhoids, grade I Anorectum - normal Colon preparation: [place] Bowel Preparation Scale Right colon; 2 Transverse colon: 2 Left colon; 2 Impression and Post Procedure Diagnosis: internal hemorrhoids Plan: High fiber diet leaflet Avoid straining at stool, epsom salts and sitz bath, anusol supps or cream Repeat Colonoscopy in 5 years due to FH or earlier if clinically indicated Assessment & Plan Assessment & Plan (1) Abdominal pain: Code(s): R10.9 - Unspecified abdominal pain Category: Medical Qualifiers: Abdominal location: generalized Qualified Code(s): R10.84 - Generalized abdominal pain Plan: Chronic NSAID exposure and reported symptoms align with gastritis or potential ulcerative processes. Additional Testing: -Upper GI series to evaluate esophageal, stomach, and duodenal integrity. -Upper endoscopy to be performed with colonoscopy Medication Management: -Famotidine as needed for breakthrough symptoms. -Initiate omeprazole 20 mg daily as a preventative treatment for 8?12 weeks while symptomatic, taken on an empty stomach at least 30 minutes before meals. -Discontinue ibuprofen use entirely; continue Meloxicam only as sparingly as possible. -Transition to Tylenol Arthritis for alternative pain management. Lifestyle Recommendations: Limit spicy food intake to reduce symptom aggravation. Follow-Up: 3-month follow-up to review imaging, evaluate medication efficacy, and assess for persistence of symptoms. (2) Blood in stool: Comment: 03/18/22 colonoscopy complete with adequate prep- normal colon mucosa, internal hemorrhoids. Recommendation for repeat due to FDR with hx of advance polyps. Code(s): K92.1 - Melena Category: Medical Plan: Ongoing abdominal pain and bleeding raise concern for possible peptic ulcer disease, esophagitis, or other GI conditions. Additional Testing: -repeat colonoscopy -imaging and EGD as above Medication Management: -omeprazole to reduce acid exposure. --prescriptions for laxative tablets and PEG sent to pharmacy; instructions on clear liquid diet given. Education: -on scheduling process, procedure preparation, including avoiding certain foods and ensuring clear liquid intake -Advised on necessity for ride post-procedure due to sedation. Follow-Up: Pending completion of testing. Plan Follow-up in 3 months or sooner as needed Time: I spent a total of 45 minutes on the date of encounter which includes: Preparing to see the patient (reviewed previous documentation, test results and medical history) Performing a medically appropriate exam and/or evaluation Ordering medications, tests, and procedures Documenting clinical information in the health record Orders: Orders FL upper GI small bowel Today K21.9 - Gastro-esophageal reflux disease without esophagitis, R10.9 - Unspecified abdominal pain Medications: New omeprazole Take one tablet daily. Best taken on an empty, 30 minutes before eating. 20 mg PO DAILY 90 caps 1RF bisacodyl Take per colonoscopy instructions 5 mg PO BID 4 tabs 0RF peg 3350-electrolytes 236-22.74-6.74 -5.86 gram until fecal effluent is clear 240 mL PO Q10M 4,000 mL 0RF simethicone (Gas Relief (simethicone)) per colonoscopy prep instructions 125 mg PO ONCE 4 caps 0RF abdominal distention Coding Level of Care Code New Pt New Pt Level 4 (38194) Patient Type New Diagnoses Generalized abdominal pain R10.84 Abdominal location: generalized Blood in stool K92.1
--- OUTSIDE RECORDS SUMMARY | 2025-08-01 10:44 | XMS_ITS | Clinical Summary ---
Author Organization [facility] Address [address] [place] [address] Care Team Providers Care Hollow Core Door Frame Assembler Name Role Phone Allen Jarvis Primary Care Provider [phone] Allergies No known active allergies Medications meloxicam [...] 3-dose series) 2010 COVID-19 Vaccine (3 - 2024- season) 2025 09/11/2021, 08/14/2021 Influenza Vaccine (#1) 2025 3, [...] topic Insurance PRIME REF REQ Care Teams Hollow Core Door Frame Assembler Relationship Specialty Start Date End Date Allen Jarvis 1960 [place] [address] PCP - General Primary Care 07/20/24
--- OUTSIDE RECORDS SUMMARY | 2025-08-01 10:44 | XMS_ITS | Clinical Summary ---
Author Organization [facility] Health Address [address] [place] [address] Care Team Providers Care Route Delivery Clerk Name Role Phone Unavailable Primary Care Provider [...]
--- OUTSIDE RECORDS SUMMARY | 2025-08-01 10:44 | XMS_ITS | Encounter Summary ---
Author Organization [facility] Address [address] [place] [address] Care Team Providers Care People Manager Name Role Phone Unavailable Primary Care Provider Unavailabl e Prior Encounters Date Type Department Care Team Description 12/17/2019 Converted 13x Documents [facility] [id number] [place] [address] <No scans attached> Plan of Treatment Not on file Visit Diagnoses Not on file
== END 2025-08-01 10:43 | disposition home or self-care (01) ==
LOC: HO.HGI 09:48
PROVIDERS: PCP Nurse Practitioner Family; Visit Provider Nurse Practitioner Family
DX: R10.84 Generalized abdominal pain (principal); K92.1 Melena
CPT/HCPCS: 99204

== ENCOUNTER → 2025-08-01 09:47 | Outpatient (BNVA) | payer OTHER, SELFPAY | PROVIDERS: PCP Nurse Practitioner Family; Visit Provider Nurse Practitioner Family | DX: K92.1 Melena (principal); R10.84 Generalized abdominal pain; Z80.0 Family history of malignant neoplasm of digestive organs | CPT/HCPCS: 99202 ==

== ENCOUNTER 2025-08-15 07:52 | Outpatient (REF) | payer OTHER, SELFPAY ==
--- OUTSIDE RECORDS SUMMARY | 2025-08-15 07:57 | XMS_ITS | Encounter Summary ---
Author Organization [facility] Address [address] [place] [address] Care Team Providers Care Fruit Coordinator Name Role Phone Unavailable Primary Care Provider Unavailabl e Prior Encounters Date Type Department Care Team Description 12/17/2019 Converted 13x Documents [facility] [id number] [place] [address] <No scans attached> Plan of Treatment Not on file Visit Diagnoses Not on file
--- OUTSIDE RECORDS SUMMARY | 2025-08-15 07:57 | XMS_ITS | Clinical Summary ---
Author Organization [facility] Address [address] [place] [address] Care Team Providers Care Metal Buggy Operator Name Role Phone Allen Jarvis Primary Care Provider [phone] Allergies No known active allergies Medications meloxicam [...] of 3 - 19+ 3-dose series) 2010 HPV Vaccines (1 - 3-dose SCDM series) 2018 COVID-19 Vaccine (3 - 2024- season) 2025 [...] topic Insurance PRIME REF REQ Care Teams Metal Buggy Operator Relationship Specialty Start Date End Date Allen Jarvis [place] [address] PCP - General Primary Care 07/20/24
--- OUTSIDE RECORDS SUMMARY | 2025-08-15 07:57 | XMS_ITS | Clinical Summary ---
Author Organization [facility] Address [address] [place] [address] Care Team Providers Care Parts Salesperson Name Role Phone Unavailable Primary Care Provider [...]
[2025-08-15 10:14] LABS: MANUAL DIFF FLAG NO
[2025-08-15 10:23] LABS: Hematocrit 42.1 % (42.0-52.0); Hemoglobin 14.5 g/dl (14.0-18.0); Imm Gran Abs Auto 0.01 X10*3/uL (0.00-0.03); Imm Gran Pct Auto 0.2 % (0.0-0.4); Lymphocytes Absolute Auto 2.4 X10*3/uL (1.2-4.9); Mean Corpuscular HGB Conc 34.4 g/dl (31.0-36.0); Mean Corpuscular Hemoglobin 31.5 pg (27.0-33.0); Mean Corpuscular Volume 91.3 fL (80.0-98.0); NRBC Abs Auto 0.000 X10*3/uL (0.0-0.012); NRBC Pct Auto 0.0 /100WBC (0.0-0.2); Platelet Count 309 X10*3/uL (160-400); Red Blood Count 4.61 X10*6/uL (4.60-5.80); White Blood Count 5.7 X10*3/uL (4.8-10.8)
[2025-08-15 10:59] LABS: Alanine Aminotransferase 32 U/L (0-40); Albumin Level 4.7 g/dL (3.5-5.0); Alkaline Phosphatase 52 U/L (39-117); Anion Gap 9 (12-20); Aspartate Amino Transferase 34 U/L (5-37); Blood Urea Nitrogen 14 mg/dL (9-16); Calcium 8.8 mg/dL (8.4-10.2); Carbon Dioxide 27 mmol/L (22-29); Chloride 108 mmol/L (96-108); Cholesterol 206 mg/dL (<200); Estimated Glomerular Filt Rate > 60; HDL Cholesterol 44 mg/dL (>40); Potassium 4.2 mmol/L (3.3-5.1); Sodium 140 mmol/L (135-145); Total Protein 7.2 g/dL (6.5-8.0); Triglycerides 146 mg/dL (<150)
[2025-08-15 11:38] LABS: Appearance Urine Clear; Glucose Urine UA Negative (Negative); PH 5.5 (5.0-9.0); Specific Gravity - Urine 1.020 (1.005-1.025)
== END 2025-08-15 07:53 | disposition home or self-care (01) ==
LOC: HO.HMGCLDS 07:52
PROVIDERS: PCP Nurse Practitioner Family; Visit Provider Nurse Practitioner Family
DX: Z00.00 Encounter for general adult medical examination without abnormal findings (principal); Z13.6 Encounter for screening for cardiovascular disorders
CPT/HCPCS: 36415; 80053; 80061; 81003; 84443; 85025

== ENCOUNTER 2025-11-06 09:53 | Outpatient (AMB) | payer OTHER, SELFPAY ==
--- NOTE | 2025-11-06 09:57 | A.OFFVIS_ITS ---
Vital Signs 11/06/25 09:58 Height 6 ft 2 in Weight 215 lb BMI 27.6 BP 110/63 Blood Pressure Location Lt brachial Position Sitting Pulse 71 Intake Visit Reasons: Family Hx Colon Cancer / Melena Intake Note: Patient complex follow up for Abdominal pain, Family Hx Colon Cancer/Melena Patient denies any GI issues for today visit. 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 Referred by PCP for further evaluation of abdominal pain and blood in stool. Follow-up on abdominal pain and blood in his stool, initially evaluated in July. He has a family history of colon cancer. Since his last visit, his symptoms have remained largely unchanged. He was started on omeprazole 20 mg daily after the last visit and reports continued use, though he has not noticed significant changes in his symptoms, but they have not worsened. He also uses famotidine as needed for breakthrough symptoms, particularly after eating spicy foods. He reports having reduced his intake of spicy foods from once or twice a week to about once or twice a month. The patient continues to experience intermittent hematochezia, noting blood both in the toilet bowl and with wiping. His abdominal pain varies in location, sometimes high, sometimes low, and sometimes deep, occurring mostly in the morning or late at night. A rectal exam performed during the last visit was normal. He denies any trouble swallowing. Planned procedures from the prior visit, an upper endoscopy and colonoscopy, have not yet been scheduled. An upper GI series is scheduled for December 09. [facility] Medical History (Updated 08/01/25 @ 11:40 by Tatyana Aguirre CNP) Abdominal pain Tinea versicolor Microscopic hematuria Panic attacks Anxiety Surgical History History of left hip replacement History of wisdom tooth extraction Family History Father Colon polyp Mother Asthma Maternal Grandfather Colon cancer Diabetes Mental health disorder Maternal Grandmother FH: ovarian cancer Diabetes Paternal Grandfather Lung cancer Paternal Grandmother No problems noted. Social History Housing: House Patient Tobacco Use Status: Never used Tobacco e-Cigarette/Vaping Use: Former Use Second Hand Smoke Exposure: No service: Yes Current occupational status: employed Current occupation: [employer] Current occupational exposures/hazards: No Cognitive needs: No Hearing needs: No Vision needs: No Review of Systems Const Reports as per HPI ENT Reports as per HPI Card Reports as per HPI Resp Reports as per HPI GI Reports as per HPI Reports as per HPI Physical Exam Vital Signs: Last Vital Signs Pulse 71 11/06/25 09:58 BP 110/63 11/06/25 09:58 BMI result Body Mass Index 27.6 Const General: healthy appearing, no acute distress and well developed Nutritional Appearance: average body habitus Orientation/consciousness: patient oriented x3 HEENT Head: Yes normal to inspection, Yes normocephalic and Yes atraumatic Face and sinus: Yes normal facial exam Eyes General: appearance normal, both eyes and all related structures Neck Neck: Yes normal visual inspection Resp Effort & Inspection: normal respiratory effort, able to speak in complete sentences, no tracheal deviation and symmetric chest movement Cardio Jugular venous distension: no JVD Neuro General: patient oriented x3 Gait exam (Neuro): Normal gait present Psych Appearance: grossly normal Mental Status: mental status grossly normal Speech and movement: Normal speech and movement present Affect: normal affect Attitude: cooperative Thought process: Normal thought process present Thought content: Normal thought content present Insight: Good insight present (Psych) Judgement: Good judgement present (Psych) Assessment & Plan Assessment & Plan (1) Abdominal pain: Code(s): R10.9 - Unspecified abdominal pain Category: Medical Qualifiers: Abdominal location: generalized Qualified Code(s): R10.84 - Generalized abdominal pain Plan: The plan is to proceed with an upper endoscopy and colonoscopy for further evaluation; the team will contact the patient for scheduling. - The patient will undergo a scheduled upper GI series on December 09. - Increase omeprazole to 40 mg total daily, advising the patient to take one 20 mg tablet twice a day (morning and night), to better cover his symptoms. - A new prescription for omeprazole 40 mg will be sent. - To rule out peptic ulcer disease, stool testing for H. pylori will be ordered. - The patient will continue to use famotidine as needed for breakthrough symptoms. (2) Blood in stool: Comment: 03/18/22 colonoscopy complete with adequate prep- normal colon mucosa, internal hemorrhoids. Recommendation for repeat due to FDR with hx of advance polyps. Code(s): K92.1 - Melena Category: Medical Plan: as above Plan Follow-up after endoscopy or sooner as needed Time: I spent a total of 22 minutes on the date of encounter which includes: Preparing to see the patient (reviewed previous documentation, test results and medical history) Performing a medically appropriate exam and/or evaluation Ordering medications, tests, and procedures Documenting clinical information in the health record Orders: Orders H pylori Ag Stool Today K92.1 - Melena, R10.84 - Generalized abdominal pain Medications: Changed From omeprazole Take one tablet daily. Best taken on an empty, 30 minutes before eating. 20 mg PO DAILY 90 caps 1RF To omeprazole Take one tablet daily. Best taken on an empty, 30 minutes before eating. 20 mg PO BID 180 caps 0RF Coding Level of Care Code Established Pt Est Pt Level 3 (47727) Patient Type Established Diagnoses Generalized abdominal pain R10.84 Abdominal location: generalized Blood in stool K92.1
[2025-11-06 09:58] VITALS: BP 110/63; PULSE 71; BMI 27.6
== END 2025-11-06 10:52 | disposition home or self-care (01) ==
LOC: HO.HGI 09:54
PROVIDERS: PCP Nurse Practitioner Family; Visit Provider Nurse Practitioner Family
DX: R10.84 Generalized abdominal pain (principal); K92.1 Melena
CPT/HCPCS: 99213

== ENCOUNTER → 2025-11-06 09:53 | Outpatient (BNVA) | payer OTHER, SELFPAY | PROVIDERS: PCP Nurse Practitioner Family; Visit Provider Nurse Practitioner Family | DX: R10.84 Generalized abdominal pain (principal); K21.9 Gastro-esophageal reflux disease without esophagitis; K92.1 Melena | CPT/HCPCS: 99212 ==